=== PATIENT | female | born 1995 | race Caucasian/White ===

== ENCOUNTER 2017-08-14 05:10 | Emergency (ER) | payer MEDICAID, OTHER ==
[2017-08-14 05:21] VITALS: BP 136/90
[2017-08-14] MEDS ORDERED: Acetaminophen 500 MG Tab PO ONE (05:36)
[2017-08-14] MEDS ORDERED: Dicyclomine 10 MG Cap PO ONE (05:37)
--- NOTE | 2017-08-14 05:44 | EDM.PDOC ---
ED HPI GENERAL MEDICAL PROBLEM - General Chief Complaint: Abdominal Pain Stated Complaint: ABDOMINAL PAIN Time Seen by Provider: 08/14/17 05:25 Source of Information: Reports: Patient, Old Records, RN History Limitations: Reports: No Limitations - History of Present Illness INITIAL COMMENTS - FREE TEXT/NARRATIVE: 21 yo female presents with intermittent abdominal pain for the past 3 days. The pain is worse tonight and it was waking her up so she decided to come to the ER. Has not seen her provider for this. Denies fevers. Stools are chronically somewhat loose and are like this now. No vomiting, but had nausea earlier. No missed menses. No dysuria. No self treatment. Onset: Gradual Onset Date: 08/11/17 Duration: Day(s): (3), Waxing/Waning Location: Reports: Abdomen (central), Generalized Quality: Reports: Stabbing Severity: Severe (at its worst, not nearly as bad now) Improves with: Reports: Other (unknown) Worsens with: Reports: Other (unknown) Context: Reports: Other (unknown) Associated Symptoms: Reports: Nausea/Vomiting (no vomiting). Denies: Fever/ Chills Treatments LINE ANALYST: Reports: Other (see below) (none) Abdominal Pain Score (Numeric/FACES): 4 - Related Data Allergies Allergy/AdvReac Type Severity Reaction Status Date / Time albuterol Allergy Shortness Verified 08/14/17 05:16 of Breath Penicillins Allergy Hives Verified 08/14/17 05:16 Sulfa (Sulfonamide Allergy Hives Verified 08/14/17 05:16 Antibiotics) Home Meds: Home Meds Levalbuterol Tartrate [Xopenex HFA] 2 puff IH Q4H PRN 01/20/13 [History] Acetaminop/Dichlphn/Isomethept [Midrin 325-100-65 MG] 1 cap PO Q4H PRN 07/23/15 [History] Montelukast [Singulair] 10 mg PO BEDTIME 07/23/15 [History] Desogestrel-Ethinyl Estradiol [Reclipsen 28 Day Tablet] 1 tab PO DAILY 08/14/17 [History] Dicyclomine [Bentyl] 10 - 20 mg PO QID PRN #30 cap 08/14/17 [Rx] Past Medical History HEENT History: Reports: Allergic Rhinitis, Impaired Vision Cardiovascular History: Reports: None Respiratory History: Reports: Asthma Gastrointestinal History: Reports: Chronic Constipation, Chronic Diarrhea Other Gastrointestinal History: Last BM - 4-14 PM Genitourinary History: Reports: None HEALTH AND NUTRITION SPECIALIST History: Reports: Dysfunctional Uterine Bleeding, Endometriosis Other OB/BYN History: biopsy of vaginal wall, removed polyps, laproscopic burning off endometrosis Musculoskeletal History: Reports: None Neurological History: Reports: Headaches, Chronic Psychiatric History: Reports: ADD, Anxiety, Depression Endocrine/Metabolic History: Reports: None Hematologic History: Reports: Anemia, Iron Deficiency Immunologic History: Reports: None Oncologic (Cancer) History: Reports: None Dermatologic History: Reports: Eczema - Infectious Disease History Infectious Disease History: Reports: None - Past Surgical History Head Surgeries/Procedures: Reports: None GI Surgical History: Reports: Cholecystectomy Social & Family History - Family History HEENT: Reports: Allergic Rhinitis, Cataract, Glaucoma, Hearing Impairment, Impaired Vision, Macular Degeneration, Sinusitis Cardiac: Reports: Angina, Blood Clots/VTE/DVT, Bypass, CAD, High Cholesterol, Hypertension, Pacemaker Respiratory: Reports: COPD GI: Reports: Cholelithiasis, Cirrhosis, Hepatitis, Pancreatitis : Reports: None OBGYN: Reports: Endometriosis, Fibroids, Musculoskeletal: Reports: Arthritis, Back pain, Chronic, Fibromyalgia, Neck Pain , Chronic, Osteoarthritis, RA Neurological: Reports: CVA, Migraines, TIA Psychiatric: Reports: None Endocrine/Metabolic: Reports: Diabetes, Type I, Diabetes, type II Hematologic: Reports: None Immunologic: Reports: None Dermatologic: Reports: None Oncologic: Reports: Liver, Other (See Below) Other Oncologic Family History: MELANOMA OF THE EYE - Tobacco Use Smoking Status *Q: Never Smoker Second Hand Smoke Exposure: No - Caffeine Use Caffeine Use: Reports: None - Alcohol Use Days Per Week of Alcohol Use: 0 - Recreational Drug Use Recreational Drug Use: No ED ROS GENERAL - Review of Systems Review Of Systems: See Below Constitutional: Reports: No Symptoms HEENT: Reports: No Symptoms Respiratory: Reports: No Symptoms Cardiovascular: Reports: No Symptoms Endocrine: Reports: No Symptoms GI/Abdominal: Reports: Abdominal Pain, Nausea. Denies: Anorexia, Black Stool, Bloody Stool, Constipation, Diarrhea, Decreased Appetite, Distension, Flatus, Hematemesis, Hematochezia, Melena, Stool Incontinence, Vomiting : Reports: No Symptoms Musculoskeletal: Reports: No Symptoms Skin: Reports: No Symptoms Neurological: Reports: No Symptoms Psychiatric: Reports: No Symptoms Hematologic/Lymphatic: Reports: No Symptoms Immunologic: Reports: No Symptoms ED EXAM, GI/ABD - Physical Exam Exam: See Below Exam Limited By: No Limitations General Appearance: Alert, WD/WN, No Apparent Distress Eyes: Bilateral: Normal Appearance Ears: Normal External Exam, Normal Canal, Hearing Grossly Normal Nose: Normal Inspection, Normal Mucosa, No Blood Throat/Mouth: Normal Inspection, Normal Lips, Normal Oropharynx, Normal Voice, No Airway Compromise Head: Atraumatic, Normocephalic Neck: Normal Inspection, Supple Respiratory/Chest: No Respiratory Distress, Lungs Clear, Normal Breath Sounds, No Accessory Muscle Use Cardiovascular: Regular Rate, Rhythm, No Edema GI/Abdominal Exam: Normal Bowel Sounds, Soft, No Distention, Tender (diffusely) , Abnormal Bowel Sounds (slightly increased) Back Exam: Normal Inspection. No: CVA Tenderness (R), CVA Tenderness (L) Extremities: Normal Inspection, Normal Range of Motion, Non-Tender, No Pedal Edema Neurological: Alert, Oriented, CN II-XII Intact, Normal Cognition, No Motor/ Sensory Deficits Psychiatric: Normal Affect, Normal Mood Skin Exam: Warm, Dry, Intact, Normal Color, No Rash Course - Vital Signs Text/Narrative:: Feeling better after acetaminophen and dicyclomine. Last Recorded V/S: Last Vital Signs Temp 36.0 C 08/14/17 05:20 Pulse 79 08/14/17 05:20 Resp 16 08/14/17 05:20 BP 136/90 08/14/17 05:20 Pulse Ox 100 08/14/17 05:20 - Orders/Labs/Meds Orders: Active Orders 24 hr Category Date Time Status Abdomen 1V Flat [CR] Stat Exams 08/14/17 05:38 Taken UA W/MICROSCOPIC [URIN] Stat Lab 08/14/17 06:40 Ordered Labs: Laboratory Tests 08/14/17 Range/Units 05:45 WBC 4.7 (4.5-11.0) K/uL RBC 5.25 (3.30-5.50) M/uL Hgb 13.5 (12.0-15.0) g/dL Hct 40.5 (36.0-48.0) % MCV 77 L (80-98) fL MCH 26 L (27-31) pg MCHC 33 (32-36) % Plt Count 223 (150-400) K/uL Meds: Medications Discontinued Medications Generic Name Dose Route Start Last Admin Trade Name Anjali PRN Reason Stop Dose Admin Acetaminophen 1,000 mg 08/14/17 05:36 08/14/17 06:04 Tylenol Extra Strength PO 08/14/17 05:37 1,000 mg ONETIME ONE Administration Dicyclomine HCl 20 mg 08/14/17 05:37 08/14/17 06:04 Bentyl PO 08/14/17 05:38 20 mg ONETIME ONE Administration - Radiology Interpretation Free Text/Narrative:: single view abdominal [id number] Departure - Departure Time of Disposition: 06:55 Disposition: Home, Self-Care 01 Condition: Good Clinical Impression: Intestinal cramps - Discharge Information Prescriptions: Dicyclomine [Bentyl] 10 - 20 mg PO QID PRN #30 cap PRN Reason: Cramping Referrals: Ledy Mcgregor PA [Primary Care Provider] - Forms: ED Department Discharge Additional Instructions: Drink more fluids, benjamin. clear liquids so your urine is light yellow in color. Eat easy to digest foods for the next day or two: yogurt, soda crackers, jello, applesauce, bananas, rice, rice base non-cream soups, apple juice, and sport drinks. Advance diet slowly as needed. Take acetaminophen as needed for pain relief. Take dicyclomine as needed for cramping. Recheck with your doctor in the clinic next week if not fully recovered. - My Orders Last 24 Hours: My Active Orders 08/14/17 05:38 Abdomen 1V Flat [CR] Stat 08/14/17 06:40 UA W/MICROSCOPIC [URIN] Stat - Assessment/Plan Last 24 Hours: My Active Orders 08/14/17 05:38 Abdomen 1V Flat [CR] Stat 08/14/17 06:40 UA W/MICROSCOPIC [URIN] Stat
--- NOTE | 2017-08-14 11:31 | CR ---
No dilated loops of large or small bowel. Surgical clips right upper quadrant.
== END 2017-08-14 07:06 | disposition home or self-care (01) ==
LOC: JP.ED 05:10
DX: R10.9 Unspecified abdominal pain (principal); E78.00 Pure hypercholesterolemia, unspecified; I10 Essential (primary) hypertension; Z88.0 Allergy status to penicillin; Z88.2 Allergy status to sulfonamides
CPT/HCPCS: 36415; 74018; 81001; 85027; 99284; A9270

== ENCOUNTER 2018-09-06 10:20 | Emergency (ER) | payer OTHER, MEDICAID ==
[2018-09-06 10:29] VITALS: BP 140/78
[2018-09-06] MEDS ORDERED: Azithromycin 250 MG Tab PO ONE (12:50)
[2018-09-06] MEDS ORDERED: cefTRIAXone 500 MG Vial IM ONE (12:50)
[2018-09-06] MEDS ORDERED: metroNIDAZOLE 250 MG Tab PO ONE (12:51)
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
[2018-09-06] MEDS ORDERED: LIDOCAINE 1% IM ONE ×2 (13:20)
[2018-09-06] MEDS ORDERED: CEFTRIAXONE 250 MG IM ONE ×2 (13:20)
== END 2018-09-06 14:18 | disposition home or self-care (01) ==
LOC: JP.ED 10:20
DX: T76.21XA Adult sexual abuse, suspected, initial encounter (principal); F41.9 Anxiety disorder, unspecified; F32.9 Major depressive disorder, single episode, unspecified; J45.909 Unspecified asthma, uncomplicated; Z79.899 Other long term (current) drug therapy; Z88.0 Allergy status to penicillin; Z88.2 Allergy status to sulfonamides; Z88.8 Allergy status to other drugs, medicaments and biological substances
CPT/HCPCS: 80305; 96372; 99284; A9270; J0696; J2001

== ENCOUNTER 2018-11-14 10:04 | Inpatient (IN) | payer MEDICAID ==
[2018-11-14] MEDS ORDERED: Sodium Chloride 0.9% 10 ML Syringe FLUSH PRN ×2 (11:03→14:58)
--- NOTE | 2018-11-14 11:11 | EDM.PDOC ---
ED HPI GENERAL MEDICAL PROBLEM - General Chief Complaint: Drug or Alcohol Abuse Stated Complaint: TOOK TOO MANY MEDS Time Seen by Provider: 11/14/18 10:54 Source of Information: Reports: Patient, RN Notes Reviewed History Limitations: Reports: Altered Mental Status - History of Present Illness INITIAL COMMENTS - FREE TEXT/NARRATIVE: 23-year-old female brought in by family members after intentional drug ingestion. Combination of Ativan and naproxen unknown pills Ativan size is 1 mg (30 tablets in the bottle, naproxen size 500 mg unknown number total of 60 tablets in the bottle. She is arousable somnolent GCS of 14 will communicate is alert and orientated, admits to suicidal ideation with intentional drug ingestion secondary to relationship - Related Data Allergies Allergy/AdvReac Type Severity Reaction Status Date / Time albuterol Allergy Shortness Verified 11/14/18 10:16 of Breath fluticasone [From Flonase] Allergy Cannot Verified 11/14/18 10:16 Remember Penicillins Allergy Hives Verified 11/14/18 10:16 Sulfa (Sulfonamide Allergy Hives Verified 11/14/18 10:16 Antibiotics) Home Meds: Home Meds Levalbuterol Tartrate [Xopenex HFA] 2 puff IH Q4H PRN 01/20/13 [History] Montelukast [Singulair] 10 mg PO BEDTIME PRN 07/23/15 [History] Amphetamine/Dextroamphetamine [Adderall XR] 25 mg PO DAILY 11/14/18 [History] Butalbital/Acetaminophen [Butalbital-Acetaminophn 50-300] 1 tab PO ASDIRECTED PRN 11/14/18 [History] Fluticasone Furoate [Flonase Sensimist] 2 spray IH ASDIRECTED 11/14/18 [History] LORazepam 1 mg PO ASDIRECTED PRN 11/14/18 [History] Levalbuterol Tartrate [Levalbuterol Tartrate Hfa] 1 puff IH ASDIRECTED 11/14/18 [History] Montelukast [Singulair] 10 mg PO DAILY 11/14/18 [History] Norethindrone-Ethinyl Estrad [Nortrel 1-35 21 Tablet] 1 tab PO ASDIRECTED [History] Oseltamivir [Tamiflu] 75 mg PO ASDIRECTED 11/14/18 [History] Past Medical History HEENT History: Reports: Allergic Rhinitis, Impaired Vision Respiratory History: Reports: Asthma Gastrointestinal History: Reports: Chronic Constipation, Chronic Diarrhea, Other (See Below) Other Gastrointestinal History: Last BM - 4-14 PM [facility] History: Reports: Dysfunctional Uterine Bleeding, Endometriosis Other [employer] History: biopsy of vaginal wall, removed polyps, laproscopic burning off endometrosis Neurological History: Reports: Headaches, Chronic, Migraines Psychiatric History: Reports: ADD, Anxiety, Depression Hematologic History: Reports: Anemia, Iron Deficiency Dermatologic History: Reports: Eczema - Past Surgical History Head Surgeries/Procedures: Reports: None HEENT Surgical History: Reports: None Cardiovascular Surgical History: Reports: None Respiratory Surgical History: Reports: None GI Surgical History: Reports: Cholecystectomy Neurological Surgical History: Reports: None Dermatological Surgical History: Reports: None Social & Family History - Family History HEENT: Reports: Allergic Rhinitis, Cataract, Glaucoma, Hearing Impairment, Impaired Vision, Macular Degeneration, Sinusitis Cardiac: Reports: Angina, Blood Clots/VTE/DVT, Bypass, CAD, High Cholesterol, Hypertension, Pacemaker Respiratory: Reports: COPD GI: Reports: Cholelithiasis, Cirrhosis, Hepatitis, Pancreatitis : Reports: None OBGYN: Reports: Endometriosis, Fibroids, Musculoskeletal: Reports: Arthritis, Back pain, Chronic, Fibromyalgia, Neck Pain , Chronic, Osteoarthritis, RA Neurological: Reports: CVA, Migraines, TIA Psychiatric: Reports: None Endocrine/Metabolic: Reports: Diabetes, Type I, Diabetes, type II Hematologic: Reports: None Immunologic: Reports: None Dermatologic: Reports: None Oncologic: Reports: Liver, Other (See Below) Other Oncologic Family History: MELANOMA OF THE EYE - Tobacco Use Smoking Status *Q: Current Some Day Smoker Years of Tobacco use: 0 Packs/Tins Daily: 0 Used Tobacco, but Quit: No - Caffeine Use Caffeine Use: Reports: Coffee, Soda, Tea - Recreational Drug Use Recreational Drug Use: No ED ROS GENERAL - Review of Systems Review Of Systems: See Below Constitutional: Reports: Other (Somnolent) HEENT: Reports: No Symptoms Respiratory: Reports: No Symptoms Cardiovascular: Reports: No Symptoms GI/Abdominal: Reports: No Symptoms : Reports: No Symptoms Musculoskeletal: Reports: No Symptoms Skin: Reports: No Symptoms Neurological: Reports: No Symptoms Psychiatric: Reports: Suicidal Ideation - Physical Exam Exam: See Below Text/Narrative:: General: Female, somnolent, GCS of 14, alert and oriented x3 HEENT: head is atraumatic normocephalic, eyes pupils equal round reactive to light, sclera clear no conjunctivitis appreciated. Ears tympanic membranes clear and koehler landmarks and light reflex are present bilaterally canals are clear. Nose no septal deviation, nares are clear, no blood present. Mouth mucosa is moist and pink no erythema or exudate noted in soft palate, tongue is midline uvula is midline, dentition is intact. Neck: Supple no thyromegaly no tracheal deviation. Nodes: Cervical nodes subclavicular nodes nontender no palpable lymphadenopathy noted. Lungs: clear to auscultation bilaterally with symmetrical respirations, no adventitious noise appreciated. CV: Regular rate and rhythm S1 and S2 appreciated no murmurs rubs or gallops noted. Abdomen: Soft, nontender, no palpable masses or organomegaly appreciated, no distention no guarding bowel sounds are present, . Neuro: GCS 14 Skin: Warm and dry, intact Extremities: No lower extremity edema appreciated, pedal pulse is +2. Course - Vital Signs Last Recorded V/S: Last Vital Signs Temp 98.6 F 11/14/18 10:34 Pulse 74 11/14/18 13:12 Resp 18 11/14/18 13:12 BP 109/62 11/14/18 13:12 Pulse Ox 100 11/14/18 13:12 - Orders/Labs/Meds Orders: Active Orders 24 hr Category Date Time Status Peripheral IV Care [RC] . DIRECTED Care 11/14/18 11:04 Inactive Lactated Ringers [Ringers, Lactated] 1,000 ml Med 11/14/18 14:17 Active IV BOLUS EKG 12 Lead [EK] Routine Ther 11/14/18 11:04 Stop Req Medication Orders Acetaminophen (Tylenol) 650 mg PO Q4H PRN PRN Reason: Pain (Mild 1-3)/fever Lactated Ringer's (Ringers, Lactated) 1,000 mls @ 999 mls/hr IV BOLUS ONE Stop: 11/14/18 15:17 Last Admin: 11/14/18 14:20 Dose: 999 mls/hr Lactated Ringer's (Ringers, Lactated) 1,000 mls @ 125 mls/hr IV ASDIRECTED JASVIR Montelukast Sodium (Singulair) 10 mg PO DAILY JASVIR Non-Formulary Medication (Levalbuterol Tartrate [Xopenex Hfa]) 2 puff IH Q4H PRN PRN Reason: Wheezing Non-Formulary Medication (Norethindrone-Ethinyl Estrad [Nortrel 1-35 21 Tablet] ) 1 tab PO ASDIRECTED JASVIR Ondansetron HCl (Zofran Odt) 4 mg PO Q6H PRN PRN Reason: Nausea able to take PO Polyethylene Glycol (Miralax) 17 gm PO DAILY PRN PRN Reason: Constipation Sodium Chloride (Saline Flush) 10 ml FLUSH ASDIRECTED PRN PRN Reason: Keep Vein Open Labs: Laboratory Tests 11/14/18 11/14/18 11/14/18 Range/Units 12:00 12:06 12:06 WBC (4.5-11.0) K/uL RBC (3.30-5.50) M/uL Hgb (12.0-15.0) g/dL Hct (36.0-48.0) % MCV (80-98) fL MCH (27-31) pg MCHC (32-36) % Plt Count (150-400) K/uL Neut % (Auto) (36-66) % Lymph % (Auto) (24-44) % Campbell % (Auto) (2-6) % Eos % (Auto) (2-4) % Baso % (Auto) (0-1) % Sodium (140-148) mmol/L Potassium (3.6-5.2) mmol/L Chloride (100-108) mmol/L Carbon Dioxide (21-32) mmol/L Anion Gap (5.0-14.0) mmol/L BUN (7-18) mg/dL Creatinine (0.6-1.0) mg/dL Est Cr Clr Drug Dosing mL/min Estimated GFR (MDRD) (>60) Glucose (74-106) mg/dL Lactic Acid (0.4-2.0) mmol/L Calcium (8.5-10.1) mg/dL Magnesium (1.8-2.4) mg/dL Total Bilirubin (0.2-1.0) mg/dL Direct Bilirubin (0.0-0.2) mg/dL AST (15-37) U/L ALT (12-78) U/L Alkaline Phosphatase (46-116) U/L Ammonia (11-32) mmol/L Total Protein (6.4-8.2) g/dL Albumin (3.4-5.0) g/dL Globulin (2.3-3.5) g/dL Albumin/Globulin Ratio (1.2-2.2) Lipase 180 (73-393) U/L Urine Color Yellow Urine Appearance Cloudy Urine pH 5.0 (4.5-8.0) Ur Specific Currie 1.025 (1.008-1.030) Urine Protein 30 H (NEGATIVE) mg/dL Urine Glucose (UA) Normal (NEGATIVE) mg/dL Urine Ketones Negative (NEGATIVE) mg/dL Urine Occult Blood Negative (NEGATIVE) Urine Nitrite Negative (NEGATIVE) Urine Bilirubin Moderate (NEGATIVE) Urine Urobilinogen Normal (NORMAL) mg/dL Ur Leukocyte Esterase Negative (NEGATIVE) Urine RBC 0-5 (0-5) Urine WBC 0-5 (0-5) Ur Epithelial Cells Few Amorphous Sediment Not seen Urine Bacteria Moderate Urine Mucus Moderate Urine HCG, Qual Negative Salicylates (2.0-20.0) mg/dL Urine Opiates Screen (NEGATIVE) Ur Oxycodone Screen (NEGATIVE) Urine Methadone Screen (NEGATIVE) Ur Propoxyphene Screen (NEGATIVE) Acetaminophen (10.0-30.0) ug/mL Ur Barbiturates Screen (NEGATIVE) Ur Tricyclics Screen (NEGATIVE) Ur Phencyclidine Scrn (NEGATIVE) Ur Amphetamine Screen (NEGATIVE) U Methamphetamines Scrn (NEGATIVE) Urine MDMA Screen (NEGATIVE) U Benzodiazepines Scrn (NEGATIVE) U Cocaine Metab Screen (NEGATIVE) U Marijuana (THC) Screen (NEGATIVE) Ethyl Alcohol mg/dL 11/14/18 11/14/18 11/14/18 Range/Units 12:06 12:10 12:10 WBC 9.8 (4.5-11.0) K/uL RBC 5.47 (3.30-5.50) M/uL Hgb 14.4 (12.0-15.0) g/dL Hct 43.2 (36.0-48.0) % MCV 79 L (80-98) fL MCH 26 L (27-31) pg MCHC 33 (32-36) % Plt Count 182 (150-400) K/uL Neut % (Auto) 76 H (36-66) % Lymph % (Auto) 16 L (24-44) % Campbell % (Auto) 7 H (2-6) % Eos % (Auto) 0 L (2-4) % Baso % (Auto) 0 (0-1) % Sodium 142 (140-148) mmol/L Potassium 4.9 (3.6-5.2) mmol/L Chloride 107 (100-108) mmol/L Carbon Dioxide 26 (21-32) mmol/L Anion Gap 9.3 (5.0-14.0) mmol/L BUN 11 (7-18) mg/dL Creatinine 0.9 (0.6-1.0) mg/dL Est Cr Clr Drug Dosing 95.59 mL/min Estimated GFR (MDRD) > 60 (>60) Glucose 82 (74-106) mg/dL Lactic Acid (0.4-2.0) mmol/L Calcium 9.0 (8.5-10.1) mg/dL Magnesium 1.8 (1.8-2.4) mg/dL Total Bilirubin 5.6 H D (0.2-1.0) mg/dL Direct Bilirubin (0.0-0.2) mg/dL AST 55 H (15-37) U/L ALT 51 (12-78) U/L Alkaline Phosphatase 70 (46-116) U/L Ammonia (11-32) mmol/L Total Protein 7.3 (6.4-8.2) g/dL Albumin 4.5 (3.4-5.0) g/dL Globulin 2.8 (2.3-3.5) g/dL Albumin/Globulin Ratio 1.6 (1.2-2.2) Lipase (73-393) U/L Urine Color Urine Appearance Urine pH (4.5-8.0) Ur Specific Currie (1.008-1.030) Urine Protein (NEGATIVE) mg/dL Urine Glucose (UA) (NEGATIVE) mg/dL Urine Ketones (NEGATIVE) mg/dL Urine Occult Blood (NEGATIVE) Urine Nitrite (NEGATIVE) Urine Bilirubin (NEGATIVE) Urine Urobilinogen (NORMAL) mg/dL Ur Leukocyte Esterase (NEGATIVE) Urine RBC (0-5) Urine WBC (0-5) Ur Epithelial Cells Amorphous Sediment Urine Bacteria Urine Mucus Urine HCG, Qual Salicylates (2.0-20.0) mg/dL Urine Opiates Screen Negative (NEGATIVE) Ur Oxycodone Screen Negative (NEGATIVE) Urine Methadone Screen Negative (NEGATIVE) Ur Propoxyphene Screen Negative (NEGATIVE) Acetaminophen (10.0-30.0) ug/mL Ur Barbiturates Screen Presumptive positive H (NEGATIVE) Ur Tricyclics Screen Presumptive positive H (NEGATIVE) Ur Phencyclidine Scrn Negative (NEGATIVE) Ur Amphetamine Screen Negative (NEGATIVE) U Methamphetamines Scrn Negative (NEGATIVE) Urine MDMA Screen Negative (NEGATIVE) U Benzodiazepines Scrn Presumptive positive H (NEGATIVE) U Cocaine Metab Screen Negative (NEGATIVE) U Marijuana (THC) Screen Presumptive positive H (NEGATIVE) Ethyl Alcohol mg/dL 11/14/18 11/14/18 11/14/18 Range/Units 12:10 12:10 12:10 WBC (4.5-11.0) K/uL RBC (3.30-5.50) M/uL Hgb (12.0-15.0) g/dL Hct (36.0-48.0) % MCV (80-98) fL MCH (27-31) pg MCHC (32-36) % Plt Count (150-400) K/uL Neut % (Auto) (36-66) % Lymph % (Auto) (24-44) % Campbell % (Auto) (2-6) % Eos % (Auto) (2-4) % Baso % (Auto) (0-1) % Sodium (140-148) mmol/L Potassium (3.6-5.2) mmol/L Chloride (100-108) mmol/L Carbon Dioxide (21-32) mmol/L Anion Gap (5.0-14.0) mmol/L BUN (7-18) mg/dL Creatinine (0.6-1.0) mg/dL Est Cr Clr Drug Dosing mL/min Estimated GFR (MDRD) (>60) Glucose (74-106) mg/dL Lactic Acid (0.4-2.0) mmol/L Calcium (8.5-10.1) mg/dL Magnesium (1.8-2.4) mg/dL Total Bilirubin (0.2-1.0) mg/dL Direct Bilirubin (0.0-0.2) mg/dL AST (15-37) U/L ALT (12-78) U/L Alkaline Phosphatase (46-116) U/L Ammonia 28 (11-32) mmol/L Total Protein (6.4-8.2) g/dL Albumin (3.4-5.0) g/dL Globulin (2.3-3.5) g/dL Albumin/Globulin Ratio (1.2-2.2) Lipase (73-393) U/L Urine Color Urine Appearance Urine pH (4.5-8.0) Ur Specific Currie (1.008-1.030) Urine Protein (NEGATIVE) mg/dL Urine Glucose (UA) (NEGATIVE) mg/dL Urine Ketones (NEGATIVE) mg/dL Urine Occult Blood (NEGATIVE) Urine Nitrite (NEGATIVE) Urine Bilirubin (NEGATIVE) Urine Urobilinogen (NORMAL) mg/dL Ur Leukocyte Esterase (NEGATIVE) Urine RBC (0-5) Urine WBC (0-5) Ur Epithelial Cells Amorphous Sediment Urine Bacteria Urine Mucus Urine HCG, Qual Salicylates (2.0-20.0) mg/dL Urine Opiates Screen (NEGATIVE) Ur Oxycodone Screen (NEGATIVE) Urine Methadone Screen (NEGATIVE) Ur Propoxyphene Screen (NEGATIVE) Acetaminophen 2.0 L (10.0-30.0) ug/mL Ur Barbiturates Screen (NEGATIVE) Ur Tricyclics Screen (NEGATIVE) Ur Phencyclidine Scrn (NEGATIVE) Ur Amphetamine Screen (NEGATIVE) U Methamphetamines Scrn (NEGATIVE) Urine MDMA Screen (NEGATIVE) U Benzodiazepines Scrn (NEGATIVE) U Cocaine Metab Screen (NEGATIVE) U Marijuana (THC) Screen (NEGATIVE) Ethyl Alcohol < 3 mg/dL 11/14/18 11/14/18 11/14/18 Range/Units 12:10 12:46 12:48 WBC (4.5-11.0) K/uL RBC (3.30-5.50) M/uL Hgb (12.0-15.0) g/dL Hct (36.0-48.0) % MCV (80-98) fL MCH (27-31) pg MCHC (32-36) % Plt Count (150-400) K/uL Neut % (Auto) (36-66) % Lymph % (Auto) (24-44) % Campbell % (Auto) (2-6) % Eos % (Auto) (2-4) % Baso % (Auto) (0-1) % Sodium (140-148) mmol/L Potassium (3.6-5.2) mmol/L Chloride (100-108) mmol/L Carbon Dioxide (21-32) mmol/L Anion Gap (5.0-14.0) mmol/L BUN (7-18) mg/dL Creatinine (0.6-1.0) mg/dL Est Cr Clr Drug Dosing mL/min Estimated GFR (MDRD) (>60) Glucose (74-106) mg/dL Lactic Acid 1.5 (0.4-2.0) mmol/L Calcium (8.5-10.1) mg/dL Magnesium (1.8-2.4) mg/dL Total Bilirubin (0.2-1.0) mg/dL Direct Bilirubin 0.06 (0.0-0.2) mg/dL AST (15-37) U/L ALT (12-78) U/L Alkaline Phosphatase (46-116) U/L Ammonia (11-32) mmol/L Total Protein (6.4-8.2) g/dL Albumin (3.4-5.0) g/dL Globulin (2.3-3.5) g/dL Albumin/Globulin Ratio (1.2-2.2) Lipase (73-393) U/L Urine Color Urine Appearance Urine pH (4.5-8.0) Ur Specific Currie (1.008-1.030) Urine Protein (NEGATIVE) mg/dL Urine Glucose (UA) (NEGATIVE) mg/dL Urine Ketones (NEGATIVE) mg/dL Urine Occult Blood (NEGATIVE) Urine Nitrite (NEGATIVE) Urine Bilirubin (NEGATIVE) Urine Urobilinogen (NORMAL) mg/dL Ur Leukocyte Esterase (NEGATIVE) Urine RBC (0-5) Urine WBC (0-5) Ur Epithelial Cells Amorphous Sediment Urine Bacteria Urine Mucus Urine HCG, Qual Salicylates 2.6 (2.0-20.0) mg/dL Urine Opiates Screen (NEGATIVE) Ur Oxycodone Screen (NEGATIVE) Urine Methadone Screen (NEGATIVE) Ur Propoxyphene Screen (NEGATIVE) Acetaminophen (10.0-30.0) ug/mL Ur Barbiturates Screen (NEGATIVE) Ur Tricyclics Screen (NEGATIVE) Ur Phencyclidine Scrn (NEGATIVE) Ur Amphetamine Screen (NEGATIVE) U Methamphetamines Scrn (NEGATIVE) Urine MDMA Screen (NEGATIVE) U Benzodiazepines Scrn (NEGATIVE) U Cocaine Metab Screen (NEGATIVE) U Marijuana (THC) Screen (NEGATIVE) Ethyl Alcohol mg/dL Meds: Medications Generic Name Dose Route Start Last Admin Trade Name Luis Miguelq PRN Reason Stop Dose Admin Acetaminophen 650 mg 11/14/18 14:58 Tylenol PO Q4H PRN Pain (Mild 1-3)/fever Lactated Ringer's 1,000 mls @ 999 mls/hr 11/14/18 14:17 11/14/18 14:20 Ringers, Lactated IV 11/14/18 15:17 999 mls/hr BOLUS ONE Administration Lactated Ringer's 1,000 mls @ 125 mls/hr 11/14/18 14:58 Ringers, Lactated IV ASDIRECTED JASVIR Montelukast Sodium 10 mg 11/15/18 09:00 Singulair PO DAILY JASVIR Non-Formulary Medication 2 puff 11/14/18 14:58 Levalbuterol Tartrate [Xopenex Hfa] IH Q4H PRN Wheezing Non-Formulary Medication 1 tab 11/14/18 14:58 Norethindrone-Ethinyl Estrad [Nortrel 1-35 21 Tablet] PO ASDIRECTED JASVIR Ondansetron HCl 4 mg 11/14/18 14:58 Zofran Odt PO Q6H PRN Nausea able to take PO Polyethylene Glycol 17 gm 11/14/18 14:58 Miralax PO DAILY PRN Constipation Sodium Chloride 10 ml 11/14/18 14:58 Saline Flush FLUSH ASDIRECTED PRN Keep Vein Open Discontinued Medications Generic Name Dose Route Start Last Admin Trade Name Luis Miguelq PRN Reason Stop Dose Admin Lactated Ringer's 1,000 mls @ 125 mls/hr 11/14/18 11:15 11/14/18 12:15 Ringers, Lactated IV 125 mls/hr ASDIRECTED JASVIR Administration Sodium Chloride 10 ml 11/14/18 11:03 11/14/18 12:16 Saline Flush FLUSH 10 ml ASDIRECTED PRN Administration Keep Vein Open Departure - Departure Time of Disposition: 15:11 Disposition: Refer to Observation Condition: Fair Clinical Impression: Suicide attempt by drug overdose - Discharge Information - My Orders Last 24 Hours: My Active Orders 11/14/18 11:04 Peripheral IV Care [RC] . DIRECTED EKG 12 Lead [EK] Routine 11/14/18 14:17 Lactated Ringers [Ringers, Lactated] 1,000 ml IV BOLUS - Assessment/Plan Last 24 Hours: My Active Orders 11/14/18 11:04 Peripheral IV Care [RC] . DIRECTED EKG 12 Lead [EK] Routine 11/14/18 14:17 Lactated Ringers [Ringers, Lactated] 1,000 ml IV BOLUS Plan: Assessment Acuity = acute Site and laterality = suicidal attempt with intentional drug overdose of naproxen and benzodiazepines Etiology = unknown etiology Manifestations = [place]wn[place] GCS 14, hyperbilirubinemia Location of injury = Home Lab values = CBC, CMP unremarkable except for bilirubin elevated 5.6 hyperbilirubinemia lactic acid normal limits lipase normal limits EKG demonstrates normal sinus rhythm qt changes ultrasound right upper quadrant revealed no acute process, urinalysis unremarkable urine drug screen positive for benzodiazepines, tricyclics, barbiturates and cannabis alcohol was negative acetaminophen are all negative salicylic acid negative Plan Called discussed case with hospitalist on-call at 1430 kindly agreed to come to the emergency department and evaluate patient for admission This note was dictated using [employer] voice recognition software please call with any questions on syntax or grammar.
[2018-11-14] MEDS ORDERED: Lactated Ringers 1,000 ML IV SCH (11:15)
[2018-11-14] MEDS ORDERED: Lactated Ringers 1,000 ML IV ONE (14:17)
--- NOTE | 2018-11-14 14:37 | PCM.HP ---
H&P History of Present Illness - General Date of Service: 11/14/18 Admit Problem/Dx: Admission Diagnosis/Problem Admission Diagnosis/Problem Drug overdose Source of Information: Patient, Family, Provider, RN Notes Reviewed History Limitations: Reports: Altered Mental Status (Decreased level of consciousness secondary to drug overdose) - History of Present Illness Initial Comments - Free Text/Narative: Ms. Dickinson is a 23-year-old woman who was admitted through the emergency department with decreased level of consciousness secondary to an intentional drug overdose as a suicide attempt. She had been drinking alcohol yesterday and has been troubled by relationship difficulties. She took an overdose of lorazepam last night,unknown quantity. This morning took several naproxen 500 mg , amount again unknown. She has been awake enough to protect her airway and during the day has become slightly more alert and interactive. She admits to an intentional overdose. Laboratory studies in the emergency department elevated bilirubin level of 5.6, direct bilirubin very low. Ultrasound of the liver was obtained showing no evidence of ductal obstruction. Hemoglobin level is within normal range but her MCV is low. - Related Data Allergies/Adverse Reactions: Allergies Allergy/AdvReac Type Severity Reaction Status Date / Time albuterol Allergy Shortness Verified 11/14/18 10:16 of Breath fluticasone [From Flonase] Allergy Cannot Verified 11/14/18 10:16 Remember Penicillins Allergy Hives Verified 11/14/18 10:16 Sulfa (Sulfonamide Allergy Hives Verified 11/14/18 10:16 Antibiotics) Home Medications: Home Meds Levalbuterol Tartrate [Xopenex HFA] 2 puff IH Q4H PRN 01/20/13 [History] Montelukast [Singulair] 10 mg PO BEDTIME PRN 07/23/15 [History] Amphetamine/Dextroamphetamine [Adderall XR] 25 mg PO DAILY 11/14/18 [History] Butalbital/Acetaminophen [Butalbital-Acetaminophn 50-300] 1 tab PO ASDIRECTED PRN 11/14/18 [History] Fluticasone Furoate [Flonase Sensimist] 2 spray IH ASDIRECTED 11/14/18 [History] LORazepam 1 mg PO ASDIRECTED PRN 11/14/18 [History] Levalbuterol Tartrate [Levalbuterol Tartrate Hfa] 1 puff IH ASDIRECTED 11/14/18 [History] Montelukast [Singulair] 10 mg PO DAILY 11/14/18 [History] Norethindrone-Ethinyl Estrad [Nortrel 1-35 21 Tablet] 1 tab PO ASDIRECTED [History] Oseltamivir [Tamiflu] 75 mg PO ASDIRECTED 11/14/18 [History] Past Medical History HEENT History: Reports: Allergic Rhinitis, Impaired Vision Cardiovascular History: Reports: None Respiratory History: Reports: Asthma Gastrointestinal History: Reports: Chronic Constipation, Chronic Diarrhea, Other (See Below) Other Gastrointestinal History: Last 08-15 PM Genitourinary History: Reports: None 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: Dysfunctional Uterine Bleeding, Endometriosis Other OB/BYN History: biopsy of vaginal wall, removed polyps, laproscopic burning off endometrosis Musculoskeletal History: Reports: None Neurological History: Reports: Headaches, Chronic, Migraines Psychiatric History: Reports: ADD, Anxiety, Depression Endocrine/Metabolic History: Reports: None Hematologic History: Reports: Anemia, Iron Deficiency Immunologic History: Reports: None Oncologic (Cancer) History: Reports: None Dermatologic History: Reports: Eczema - Past Surgical History Head Surgeries/Procedures: Reports: None HEENT Surgical History: Reports: None Cardiovascular Surgical History: Reports: None Respiratory Surgical History: Reports: None GI Surgical History: Reports: Cholecystectomy Neurological Surgical History: Reports: None Dermatological Surgical History: Reports: None Social & Family History - Family History HEENT: Reports: Allergic Rhinitis, Cataract, Glaucoma, Hearing Impairment, Impaired Vision, Macular Degeneration, Sinusitis Cardiac: Reports: Angina, Blood Clots/VTE/DVT, Bypass, CAD, High Cholesterol, Hypertension, Pacemaker Respiratory: Reports: COPD GI: Reports: Cholelithiasis, Cirrhosis, Hepatitis, Pancreatitis : Reports: None OBGYN: Reports: Endometriosis, Fibroids, Musculoskeletal: Reports: Arthritis, Back pain, Chronic, Fibromyalgia, Neck Pain , Chronic, Osteoarthritis, RA Neurological: Reports: CVA, Migraines, TIA Psychiatric: Reports: None Endocrine/Metabolic: Reports: Diabetes, Type I, Diabetes, type II Hematologic: Reports: None Immunologic: Reports: None Dermatologic: Reports: None Oncologic: Reports: Liver, Other (See Below) Other Oncologic Family History: MELANOMA OF THE EYE - Tobacco Use Smoking Status *Q: Current Some Day Smoker Years of Tobacco use: 0 Packs/Tins Daily: 0 Used Tobacco, but Quit: No - Caffeine Use Caffeine Use: Reports: Coffee, Soda, Tea - Recreational Drug Use Recreational Drug Use: No H&P Review of Systems - Review of Systems: Review Of Systems: See Below General: Reports: ROS unobtainable (secondary to decreased level of consciousness) Exam - Exam Exam: See Below - Vital Signs Vital Signs: Last Vital Signs Temp 98.6 F 11/14/18 10:34 Pulse 74 11/14/18 13:12 Resp 18 11/14/18 13:12 BP 109/62 11/14/18 13:12 Pulse Ox 100 11/14/18 13:12 Weight: 135 lb - Exam General: Sedated, Lethargic HEENT: Conjunctiva Clear, Hearing Intact, Mucosa Moist & [place], Normal Nasal Septum, Posterior Pharynx Clear, Pupils Equal Neck: Supple, Trachea Midline, +2 Carotid Pulse wo Bruit Lungs: Clear to Auscultation, Normal Respiratory Effort Cardiovascular: Regular Rate, Regular Rhythm, Normal S1, Normal S2. No: Systolic Murmur, Diastolic Murmur GI/Abdominal Exam: Soft, Non-Tender, No Organomegaly, No Distention Back Exam: Normal Inspection, Full Range of Motion Extremities: Non-Tender, No Pedal Edema Skin: Warm, Dry, Intact Neurological: Cranial Nerves Intact, Strength Equal Bilateral, Normal Tone, Sensation Intact. No: Focal Deficit - Patient Data Lab Results Last 24 hrs: Laboratory Results - last 24 hr 11/14/18 11/14/18 11/14/18 Range/Units 12:00 12:06 12:06 WBC (4.5-11.0) K/uL RBC (3.30-5.50) M/uL Hgb (12.0-15.0) g/dL Hct (36.0-48.0) % MCV (80-98) fL MCH (27-31) pg MCHC (32-36) % Plt Count (150-400) K/uL Neut % (Auto) (36-66) % Lymph % (Auto) (24-44) % [place] % (Auto) (2-6) % Eos % (Auto) (2-4) % Baso % (Auto) (0-1) % Sodium (140-148) mmol/L Potassium (3.6-5.2) mmol/L Chloride (100-108) mmol/L Carbon Dioxide (21-32) mmol/L Anion Gap (5.0-14.0) mmol/L BUN (7-18) mg/dL Creatinine (0.6-1.0) mg/dL Est Cr Clr Drug Dosing mL/min Estimated GFR (MDRD) (>60) Glucose (74-106) mg/dL Lactic Acid (0.4-2.0) mmol/L Calcium (8.5-10.1) mg/dL Magnesium (1.8-2.4) mg/dL Total Bilirubin (0.2-1.0) mg/dL Direct Bilirubin (0.0-0.2) mg/dL AST (15-37) U/L ALT (12-78) U/L Alkaline Phosphatase (46-116) U/L Ammonia (11-32) mmol/L Total Protein (6.4-8.2) g/dL Albumin (3.4-5.0) g/dL Globulin (2.3-3.5) g/dL Albumin/Globulin Ratio (1.2-2.2) Lipase 180 (73-393) U/L Urine Color Yellow Urine Appearance Cloudy Urine pH 5.0 (4.5-8.0) Ur Specific [place] 1.025 (1.008-1.030) Urine Protein 30 H (NEGATIVE) mg/dL Urine Glucose (UA) Normal (NEGATIVE) mg/dL Urine Ketones Negative (NEGATIVE) mg/dL Urine Occult Blood Negative (NEGATIVE) Urine Nitrite Negative (NEGATIVE) Urine Bilirubin Moderate (NEGATIVE) Urine Urobilinogen Normal (NORMAL) mg/dL Ur Leukocyte Esterase Negative (NEGATIVE) Urine RBC 0-5 (0-5) Urine WBC 0-5 (0-5) Ur Epithelial Cells Few Amorphous Sediment Not seen Urine Bacteria Moderate Urine Mucus Moderate Urine HCG, Qual Negative Salicylates (2.0-20.0) mg/dL Urine Opiates Screen (NEGATIVE) Ur Oxycodone Screen (NEGATIVE) Urine Methadone Screen (NEGATIVE) Ur Propoxyphene Screen (NEGATIVE) Acetaminophen (10.0-30.0) ug/mL Ur Barbiturates Screen (NEGATIVE) Ur Tricyclics Screen (NEGATIVE) Ur Phencyclidine Scrn (NEGATIVE) Ur Amphetamine Screen (NEGATIVE) U Methamphetamines Scrn (NEGATIVE) Urine MDMA Screen (NEGATIVE) U Benzodiazepines Scrn (NEGATIVE) U Cocaine Metab Screen (NEGATIVE) U Marijuana (THC) Screen (NEGATIVE) Ethyl Alcohol mg/dL 11/14/18 11/14/18 11/14/18 Range/Units 12:06 12:10 12:10 WBC 9.8 (4.5-11.0) K/uL RBC 5.47 (3.30-5.50) M/uL Hgb 14.4 (12.0-15.0) g/dL Hct 43.2 (36.0-48.0) % MCV 79 L (80-98) fL MCH 26 L (27-31) pg MCHC 33 (32-36) % Plt Count 182 (150-400) K/uL Neut % (Auto) 76 H (36-66) % Lymph % (Auto) 16 L (24-44) % [place] % (Auto) 7 H (2-6) % Eos % (Auto) 0 L (2-4) % Baso % (Auto) 0 (0-1) % Sodium 142 (140-148) mmol/L Potassium 4.9 (3.6-5.2) mmol/L Chloride 107 (100-108) mmol/L Carbon Dioxide 26 (21-32) mmol/L Anion Gap 9.3 (5.0-14.0) mmol/L BUN 11 (7-18) mg/dL Creatinine 0.9 (0.6-1.0) mg/dL Est Cr Clr Drug Dosing 95.59 mL/min Estimated GFR (MDRD) > 60 (>60) Glucose 82 (74-106) mg/dL Lactic Acid (0.4-2.0) mmol/L Calcium 9.0 (8.5-10.1) mg/dL Magnesium 1.8 (1.8-2.4) mg/dL Total Bilirubin 5.6 H D (0.2-1.0) mg/dL Direct Bilirubin (0.0-0.2) mg/dL AST 55 H (15-37) U/L ALT 51 (12-78) U/L Alkaline Phosphatase 70 (46-116) U/L Ammonia (11-32) mmol/L Total Protein 7.3 (6.4-8.2) g/dL Albumin 4.5 (3.4-5.0) g/dL Globulin 2.8 (2.3-3.5) g/dL Albumin/Globulin Ratio 1.6 (1.2-2.2) Lipase (73-393) U/L Urine Color Urine Appearance Urine pH (4.5-8.0) Ur Specific [place] (1.008-1.030) Urine Protein (NEGATIVE) mg/dL Urine Glucose (UA) (NEGATIVE) mg/dL Urine Ketones (NEGATIVE) mg/dL Urine Occult Blood (NEGATIVE) Urine Nitrite (NEGATIVE) Urine Bilirubin (NEGATIVE) Urine Urobilinogen (NORMAL) mg/dL Ur Leukocyte Esterase (NEGATIVE) Urine RBC (0-5) Urine WBC (0-5) Ur Epithelial Cells Amorphous Sediment Urine Bacteria Urine Mucus Urine HCG, Qual Salicylates (2.0-20.0) mg/dL Urine Opiates Screen Negative (NEGATIVE) Ur Oxycodone Screen Negative (NEGATIVE) Urine Methadone Screen Negative (NEGATIVE) Ur Propoxyphene Screen Negative (NEGATIVE) Acetaminophen (10.0-30.0) ug/mL Ur Barbiturates Screen Presumptive positive H (NEGATIVE) Ur Tricyclics Screen Presumptive positive H (NEGATIVE) Ur Phencyclidine Scrn Negative (NEGATIVE) Ur Amphetamine Screen Negative (NEGATIVE) U Methamphetamines Scrn Negative (NEGATIVE) Urine MDMA Screen Negative (NEGATIVE) U Benzodiazepines Scrn Presumptive positive H (NEGATIVE) U Cocaine Metab Screen Negative (NEGATIVE) U Marijuana (THC) Screen Presumptive positive H (NEGATIVE) Ethyl Alcohol mg/dL 11/14/18 11/14/18 11/14/18 Range/Units 12:10 12:10 12:10 WBC (4.5-11.0) K/uL RBC (3.30-5.50) M/uL Hgb (12.0-15.0) g/dL Hct (36.0-48.0) % MCV (80-98) fL MCH (27-31) pg MCHC (32-36) % Plt Count (150-400) K/uL Neut % (Auto) (36-66) % Lymph % (Auto) (24-44) % [place] % (Auto) (2-6) % Eos % (Auto) (2-4) % Baso % (Auto) (0-1) % Sodium (140-148) mmol/L Potassium (3.6-5.2) mmol/L Chloride (100-108) mmol/L Carbon Dioxide (21-32) mmol/L Anion Gap (5.0-14.0) mmol/L BUN (7-18) mg/dL Creatinine (0.6-1.0) mg/dL Est Cr Clr Drug Dosing mL/min Estimated GFR (MDRD) (>60) Glucose (74-106) mg/dL Lactic Acid (0.4-2.0) mmol/L Calcium (8.5-10.1) mg/dL Magnesium (1.8-2.4) mg/dL Total Bilirubin (0.2-1.0) mg/dL Direct Bilirubin (0.0-0.2) mg/dL AST (15-37) U/L ALT (12-78) U/L Alkaline Phosphatase (46-116) U/L Ammonia 28 (11-32) mmol/L Total Protein (6.4-8.2) g/dL Albumin (3.4-5.0) g/dL Globulin (2.3-3.5) g/dL Albumin/Globulin Ratio (1.2-2.2) Lipase (73-393) U/L Urine Color Urine Appearance Urine pH (4.5-8.0) Ur Specific [place] (1.008-1.030) Urine Protein (NEGATIVE) mg/dL Urine Glucose (UA) (NEGATIVE) mg/dL Urine Ketones (NEGATIVE) mg/dL Urine Occult Blood (NEGATIVE) Urine Nitrite (NEGATIVE) Urine Bilirubin (NEGATIVE) Urine Urobilinogen (NORMAL) mg/dL Ur Leukocyte Esterase (NEGATIVE) Urine RBC (0-5) Urine WBC (0-5) Ur Epithelial Cells Amorphous Sediment Urine Bacteria Urine Mucus Urine HCG, Qual Salicylates (2.0-20.0) mg/dL Urine Opiates Screen (NEGATIVE) Ur Oxycodone Screen (NEGATIVE) Urine Methadone Screen (NEGATIVE) Ur Propoxyphene Screen (NEGATIVE) Acetaminophen 2.0 L (10.0-30.0) ug/mL Ur Barbiturates Screen (NEGATIVE) Ur Tricyclics Screen (NEGATIVE) Ur Phencyclidine Scrn (NEGATIVE) Ur Amphetamine Screen (NEGATIVE) U Methamphetamines Scrn (NEGATIVE) Urine MDMA Screen (NEGATIVE) U Benzodiazepines Scrn (NEGATIVE) U Cocaine Metab Screen (NEGATIVE) U Marijuana (THC) Screen (NEGATIVE) Ethyl Alcohol < 3 mg/dL 11/14/18 11/14/18 11/14/18 Range/Units 12:10 12:46 12:48 WBC (4.5-11.0) K/uL RBC (3.30-5.50) M/uL Hgb (12.0-15.0) g/dL Hct (36.0-48.0) % MCV (80-98) fL MCH (27-31) pg MCHC (32-36) % Plt Count (150-400) K/uL Neut % (Auto) (36-66) % Lymph % (Auto) (24-44) % [place] % (Auto) (2-6) % Eos % (Auto) (2-4) % Baso % (Auto) (0-1) % Sodium (140-148) mmol/L Potassium (3.6-5.2) mmol/L Chloride (100-108) mmol/L Carbon Dioxide (21-32) mmol/L Anion Gap (5.0-14.0) mmol/L BUN (7-18) mg/dL Creatinine (0.6-1.0) mg/dL Est Cr Clr Drug Dosing mL/min Estimated GFR (MDRD) (>60) Glucose (74-106) mg/dL Lactic Acid 1.5 (0.4-2.0) mmol/L Calcium (8.5-10.1) mg/dL Magnesium (1.8-2.4) mg/dL Total Bilirubin (0.2-1.0) mg/dL Direct Bilirubin 0.06 (0.0-0.2) mg/dL AST (15-37) U/L ALT (12-78) U/L Alkaline Phosphatase (46-116) U/L Ammonia (11-32) mmol/L Total Protein (6.4-8.2) g/dL Albumin (3.4-5.0) g/dL Globulin (2.3-3.5) g/dL Albumin/Globulin Ratio (1.2-2.2) Lipase (73-393) U/L Urine Color Urine Appearance Urine pH (4.5-8.0) Ur Specific [place] (1.008-1.030) Urine Protein (NEGATIVE) mg/dL Urine Glucose (UA) (NEGATIVE) mg/dL Urine Ketones (NEGATIVE) mg/dL Urine Occult Blood (NEGATIVE) Urine Nitrite (NEGATIVE) Urine Bilirubin (NEGATIVE) Urine Urobilinogen (NORMAL) mg/dL Ur Leukocyte Esterase (NEGATIVE) Urine RBC (0-5) Urine WBC (0-5) Ur Epithelial Cells Amorphous Sediment Urine Bacteria Urine Mucus Urine HCG, Qual Salicylates 2.6 (2.0-20.0) mg/dL Urine Opiates Screen (NEGATIVE) Ur Oxycodone Screen (NEGATIVE) Urine Methadone Screen (NEGATIVE) Ur Propoxyphene Screen (NEGATIVE) Acetaminophen (10.0-30.0) ug/mL Ur Barbiturates Screen (NEGATIVE) Ur Tricyclics Screen (NEGATIVE) Ur Phencyclidine Scrn (NEGATIVE) Ur Amphetamine Screen (NEGATIVE) U Methamphetamines Scrn (NEGATIVE) Urine MDMA Screen (NEGATIVE) U Benzodiazepines Scrn (NEGATIVE) U Cocaine Metab Screen (NEGATIVE) U Marijuana (THC) Screen (NEGATIVE) Ethyl Alcohol mg/dL Result Diagrams: 11/14/18 12:10 11/14/18 12:10 *Q Meaningful Use (ADM) - VTE *Q VTE Pharmacological Contraindications *Q: Not Candidate LT Anticoag - VTE Risk Assess *Q Each Risk Factor Represents 1 Point: None Total Score 1 Point Risk Factors: 0 Each Risk Factor Represents 2 Points: None Total Score 2 Point Risk Factors: 0 Each Risk Factor Represents 3 Points: None Total Score 3 Point Risk Factors: 0 Each Risk Factor Represents 5 Points: None Total Score 5 Point Risk Factors: 0 Venous Thromboembolism Risk Factor Score *Q: 0 Problem List Initiated/Reviewed/Updated: Yes Orders Last 24hrs: Active Orders 24 hr Category Date Time Status Patient Status Manage Transfer [TRANSFER] Routine ADT 11/14/18 14:31 Ordered EKG Documentation Completion [RC] ASDIRECTED Care 11/14/18 11:05 Active Peripheral IV Care [RC] . DIRECTED Care 11/14/18 11:04 Active Suicide Precautions [RC] ASDIRECTED Care 11/14/18 11:03 Active Abdomen Ltd [US] Stat Exams 11/14/18 12:48 Taken Lactated Ringers [Ringers, Lactated] 1,000 ml Med 11/14/18 11:15 Active IV ASDIRECTED Lactated Ringers [Ringers, Lactated] 1,000 ml Med 11/14/18 14:17 Active IV BOLUS Sodium Chloride 0.9% [Saline Flush] Med 11/14/18 11:03 Active 10 ml FLUSH ASDIRECTED PRN Peripheral IV Insertion Adult [OM.PC] Urgent Oth 11/14/18 11:03 Ordered Resuscitation Status Routine Resus Stat 11/14/18 14:33 Ordered EKG 12 Lead [EK] Routine Ther 11/14/18 11:04 Ordered Medication Orders Lactated Ringer's (Ringers, Lactated) 1,000 mls @ 125 mls/hr IV ASDIRECTED JASVIR Last Admin: 11/14/18 12:15 Dose: 125 mls/hr Lactated Ringer's (Ringers, Lactated) 1,000 mls @ 999 mls/hr IV BOLUS ONE Stop: 11/14/18 15:17 Last Admin: 11/14/18 14:20 Dose: 999 mls/hr Sodium Chloride (Saline Flush) 10 ml FLUSH ASDIRECTED PRN PRN Reason: Keep Vein Open Last Admin: 11/14/18 12:16 Dose: 10 ml Assessment/Plan Comment:: ASSESSMENT AND PLAN INTENTIONAL DRUG OVERDOSE/SUICIDE ATTEMPT-overdose of unknown quantities of lorazepam 1 mg and Naproxin 500 mg, associated with alcohol use. Urine drug screen positive for barbiturates, benzodiazepines, tricyclics, and marijuana. -IV fluids for hydration -Reassess renal function in a.m. -Continuous pulse oximetry and cardiac monitoring -Crisis team evaluation in a.m. ELEVATED BILIRUBIN-bilirubin of 5.6 identified on admission, very low direct bilirubin. Mild elevation in AST likely secondary to alcohol use. Ultrasound shows no evidence of ductal obstruction. Etiology not apparent. -Reassess bilirubin in a.m., pursue evaluation if remain significantly elevated MICROCYTIC RED BLOOD CELL INDICES -Iron and iron binding in a.m. MAINTENANCE ISSUES -DVT prophylaxis;not indicated -GI prophylaxis;not indicated -Glynn catheter;not indicated -Nutrition;regular diet -Nicotine dependence;not required CODE STATUS-FULL CODE ADMISSION STATUS-patient will be admitted to inpatient status, expect at least a 2 night hospital stay for evaluation and management of problems as outlined above. At the time of this admission I do not reasonably expected evaluation and management of this problem will require more than a 96 hour hospital stay. DISPOSITION-anticipate discharge to home after the hospital stay. PRIMARY CARE PROVIDER-Angelina Mcgregor
--- NOTE | 2018-11-14 14:48 | CRLUS ---
Elevated bili. Technique right upper quadrant ultrasound FINDINGS: Visualized pancreas is unremarkable. Proximal abdominal aorta is nonaneurysmal. Liver is unremarkable. Cholecystectomy. Common bile duct is upper limits of normal measuring 6 mm. Right kidney measures 10 cm. Right kidney is unremarkable. Impression: Unremarkable abdominal ultrasound. Dictated by Aracelis Henry MD @ Nov 14 2018 2:46PM Signed by Dr. Aracelis Henry @ Nov 14 2018 2:48PM
[2018-11-14] MEDS ORDERED: Ondansetron 4 MG Tab.DIS PO PRN (14:58)
[2018-11-14] MEDS ORDERED: Polyethylene Glycol 3350 Powder 17 GM Packet PO PRN (14:58)
[2018-11-14] MEDS ORDERED: Acetaminophen 325 MG Tab PO PRN (14:58)
[2018-11-14] MEDS ORDERED: Non-Formulary Medication 1 Each (Levalbuterol Tartrate [Xopenex Hfa] 2 PUFF) IH PRN (14:58)
[2018-11-14] MEDS ORDERED: [UNRECOGNIZED DRUG - OTHER] PO SCH (14:58)
[2018-11-14] MEDS ORDERED: LEVALBUTEROL TARTRATE IH SCH (16:15)
[2018-11-14 20:17] LABS: ACETAMINOPHEN 4.7 ug/mL (10.0-30.0)
[2018-11-14] MEDS: Lactated Ringers 1,000 ML IV SCH (22:37)
[2018-11-15] MEDS: Lactated Ringers 1,000 ML IV SCH (06:42)
[2018-11-15] MEDS ORDERED: Montelukast 10 MG Tab PO SCH (09:00)
--- NOTE | 2018-11-15 09:04 | PCM.PN ---
- General Info Date of Service: 11/15/18 Subjective Update: There were no acute events overnight. Patient has stable vital signs. Bilirubin level is normal today. Iron studies are normal. She reports that physically she feels okay with no shortness of breath or abdominal pain. She feels down. She feels foolish about her ingestions over the weekend. She does tell me that she took the pills in an attempt to go to sleep and never wake up. She voices understanding about the severity of the episodes and necessity of inpatient management. - Patient Data Vitals - Most Recent: Last Vital Signs Temp 35.1 C L 11/15/18 07:00 Pulse 72 11/15/18 08:00 Resp 19 11/15/18 08:00 BP 113/75 11/15/18 08:00 Pulse Ox 98 11/15/18 08:00 Weight - Most Recent: 61.235 kg I&O - Last 24 Hours: Intake & Output 11/14/18 11/15/18 11/15/18 22:59 06:59 14:59 Intake Total 1462 1678 Balance 1462 1678 Lab Results Last 24 Hours: Laboratory Results - last 24 hr 11/14/18 11/14/18 11/14/18 Range/Units 12:00 12:06 12:06 WBC (4.5-11.0) K/uL RBC (3.30-5.50) M/uL Hgb (12.0-15.0) g/dL Hct (36.0-48.0) % MCV (80-98) fL MCH (27-31) pg MCHC (32-36) % Plt Count (150-400) K/uL Neut % (Auto) (36-66) % Lymph % (Auto) (24-44) % Long % (Auto) (2-6) % Eos % (Auto) (2-4) % Baso % (Auto) (0-1) % Sodium (140-148) mmol/L Potassium (3.6-5.2) mmol/L Chloride (100-108) mmol/L Carbon Dioxide (21-32) mmol/L Anion Gap (5.0-14.0) mmol/L BUN (7-18) mg/dL Creatinine (0.6-1.0) mg/dL Est Cr Clr Drug Dosing mL/min Estimated GFR (MDRD) (>60) Glucose (74-106) mg/dL Lactic Acid (0.4-2.0) mmol/L Calcium (8.5-10.1) mg/dL Magnesium (1.8-2.4) mg/dL Iron (50-170) ug/dL TIBC (250-450) ug/dl % Saturation (20-55) % Total Bilirubin (0.2-1.0) mg/dL Direct Bilirubin (0.0-0.2) mg/dL AST (15-37) U/L ALT (12-78) U/L Alkaline Phosphatase (46-116) U/L Ammonia (11-32) mmol/L Total Protein (6.4-8.2) g/dL Albumin (3.4-5.0) g/dL Globulin (2.3-3.5) g/dL Albumin/Globulin Ratio (1.2-2.2) Lipase 180 (73-393) U/L Urine Color Yellow Urine Appearance Cloudy Urine pH 5.0 (4.5-8.0) Ur Specific [place] 1.025 (1.008-1.030) Urine Protein 30 H (NEGATIVE) mg/dL Urine Glucose (UA) Normal (NEGATIVE) mg/dL Urine Ketones Negative (NEGATIVE) mg/dL Urine Occult Blood Negative (NEGATIVE) Urine Nitrite Negative (NEGATIVE) Urine Bilirubin Moderate (NEGATIVE) Urine Urobilinogen Normal (NORMAL) mg/dL Ur Leukocyte Esterase Negative (NEGATIVE) Urine RBC 0-5 (0-5) Urine WBC 0-5 (0-5) Ur Epithelial Cells Few Amorphous Sediment Not seen Urine Bacteria Moderate Urine Mucus Moderate Urine HCG, Qual Negative Salicylates (2.0-20.0) mg/dL Urine Opiates Screen (NEGATIVE) Ur Oxycodone Screen (NEGATIVE) Urine Methadone Screen (NEGATIVE) Ur Propoxyphene Screen (NEGATIVE) Acetaminophen (10.0-30.0) ug/mL Ur Barbiturates Screen (NEGATIVE) Ur Tricyclics Screen (NEGATIVE) Ur Phencyclidine Scrn (NEGATIVE) Ur Amphetamine Screen (NEGATIVE) U Methamphetamines Scrn (NEGATIVE) Urine MDMA Screen (NEGATIVE) U Benzodiazepines Scrn (NEGATIVE) U Cocaine Metab Screen (NEGATIVE) U Marijuana (THC) Screen (NEGATIVE) Ethyl Alcohol mg/dL 11/14/18 11/14/18 11/14/18 Range/Units 12:06 12:10 12:10 WBC 9.8 (4.5-11.0) K/uL RBC 5.47 (3.30-5.50) M/uL Hgb 14.4 (12.0-15.0) g/dL Hct 43.2 (36.0-48.0) % MCV 79 L (80-98) fL MCH 26 L (27-31) pg MCHC 33 (32-36) % Plt Count 182 (150-400) K/uL Neut % (Auto) 76 H (36-66) % Lymph % (Auto) 16 L (24-44) % Long % (Auto) 7 H (2-6) % Eos % (Auto) 0 L (2-4) % Baso % (Auto) 0 (0-1) % Sodium 142 (140-148) mmol/L Potassium 4.9 (3.6-5.2) mmol/L Chloride 107 (100-108) mmol/L Carbon Dioxide 26 (21-32) mmol/L Anion Gap 9.3 (5.0-14.0) mmol/L BUN 11 (7-18) mg/dL Creatinine 0.9 (0.6-1.0) mg/dL Est Cr Clr Drug Dosing 95.59 mL/min Estimated GFR (MDRD) > 60 (>60) Glucose 82 (74-106) mg/dL Lactic Acid (0.4-2.0) mmol/L Calcium 9.0 (8.5-10.1) mg/dL Magnesium 1.8 (1.8-2.4) mg/dL Iron (50-170) ug/dL TIBC (250-450) ug/dl % Saturation (20-55) % Total Bilirubin 5.6 H D (0.2-1.0) mg/dL Direct Bilirubin (0.0-0.2) mg/dL AST 55 H (15-37) U/L ALT 51 (12-78) U/L Alkaline Phosphatase 70 (46-116) U/L Ammonia (11-32) mmol/L Total Protein 7.3 (6.4-8.2) g/dL Albumin 4.5 (3.4-5.0) g/dL Globulin 2.8 (2.3-3.5) g/dL Albumin/Globulin Ratio 1.6 (1.2-2.2) Lipase (73-393) U/L Urine Color Urine Appearance Urine pH (4.5-8.0) Ur Specific [place] (1.008-1.030) Urine Protein (NEGATIVE) mg/dL Urine Glucose (UA) (NEGATIVE) mg/dL Urine Ketones (NEGATIVE) mg/dL Urine Occult Blood (NEGATIVE) Urine Nitrite (NEGATIVE) Urine Bilirubin (NEGATIVE) Urine Urobilinogen (NORMAL) mg/dL Ur Leukocyte Esterase (NEGATIVE) Urine RBC (0-5) Urine WBC (0-5) Ur Epithelial Cells Amorphous Sediment Urine Bacteria Urine Mucus Urine HCG, Qual Salicylates (2.0-20.0) mg/dL Urine Opiates Screen Negative (NEGATIVE) Ur Oxycodone Screen Negative (NEGATIVE) Urine Methadone Screen Negative (NEGATIVE) Ur Propoxyphene Screen Negative (NEGATIVE) Acetaminophen (10.0-30.0) ug/mL Ur Barbiturates Screen Presumptive positive H (NEGATIVE) Ur Tricyclics Screen Presumptive positive H (NEGATIVE) Ur Phencyclidine Scrn Negative (NEGATIVE) Ur Amphetamine Screen Negative (NEGATIVE) U Methamphetamines Scrn Negative (NEGATIVE) Urine MDMA Screen Negative (NEGATIVE) U Benzodiazepines Scrn Presumptive positive H (NEGATIVE) U Cocaine Metab Screen Negative (NEGATIVE) U Marijuana (THC) Screen Presumptive positive H (NEGATIVE) Ethyl Alcohol mg/dL 11/14/18 11/14/18 11/14/18 Range/Units 12:10 12:10 12:10 WBC (4.5-11.0) K/uL RBC (3.30-5.50) M/uL Hgb (12.0-15.0) g/dL Hct (36.0-48.0) % MCV (80-98) fL MCH (27-31) pg MCHC (32-36) % Plt Count (150-400) K/uL Neut % (Auto) (36-66) % Lymph % (Auto) (24-44) % Long % (Auto) (2-6) % Eos % (Auto) (2-4) % Baso % (Auto) (0-1) % Sodium (140-148) mmol/L Potassium (3.6-5.2) mmol/L Chloride (100-108) mmol/L Carbon Dioxide (21-32) mmol/L Anion Gap (5.0-14.0) mmol/L BUN (7-18) mg/dL Creatinine (0.6-1.0) mg/dL Est Cr Clr Drug Dosing mL/min Estimated GFR (MDRD) (>60) Glucose (74-106) mg/dL Lactic Acid (0.4-2.0) mmol/L Calcium (8.5-10.1) mg/dL Magnesium (1.8-2.4) mg/dL Iron (50-170) ug/dL TIBC (250-450) ug/dl % Saturation (20-55) % Total Bilirubin (0.2-1.0) mg/dL Direct Bilirubin (0.0-0.2) mg/dL AST (15-37) U/L ALT (12-78) U/L Alkaline Phosphatase (46-116) U/L Ammonia 28 (11-32) mmol/L Total Protein (6.4-8.2) g/dL Albumin (3.4-5.0) g/dL Globulin (2.3-3.5) g/dL Albumin/Globulin Ratio (1.2-2.2) Lipase (73-393) U/L Urine Color Urine Appearance Urine pH (4.5-8.0) Ur Specific [place] (1.008-1.030) Urine Protein (NEGATIVE) mg/dL Urine Glucose (UA) (NEGATIVE) mg/dL Urine Ketones (NEGATIVE) mg/dL Urine Occult Blood (NEGATIVE) Urine Nitrite (NEGATIVE) Urine Bilirubin (NEGATIVE) Urine Urobilinogen (NORMAL) mg/dL Ur Leukocyte Esterase (NEGATIVE) Urine RBC (0-5) Urine WBC (0-5) Ur Epithelial Cells Amorphous Sediment Urine Bacteria Urine Mucus Urine HCG, Qual Salicylates (2.0-20.0) mg/dL Urine Opiates Screen (NEGATIVE) Ur Oxycodone Screen (NEGATIVE) Urine Methadone Screen (NEGATIVE) Ur Propoxyphene Screen (NEGATIVE) Acetaminophen 2.0 L (10.0-30.0) ug/mL Ur Barbiturates Screen (NEGATIVE) Ur Tricyclics Screen (NEGATIVE) Ur Phencyclidine Scrn (NEGATIVE) Ur Amphetamine Screen (NEGATIVE) U Methamphetamines Scrn (NEGATIVE) Urine MDMA Screen (NEGATIVE) U Benzodiazepines Scrn (NEGATIVE) U Cocaine Metab Screen (NEGATIVE) U Marijuana (THC) Screen (NEGATIVE) Ethyl Alcohol < 3 mg/dL 11/14/18 11/14/18 11/14/18 Range/Units 12:10 12:46 12:48 WBC (4.5-11.0) K/uL RBC (3.30-5.50) M/uL Hgb (12.0-15.0) g/dL Hct (36.0-48.0) % MCV (80-98) fL MCH (27-31) pg MCHC (32-36) % Plt Count (150-400) K/uL Neut % (Auto) (36-66) % Lymph % (Auto) (24-44) % Long % (Auto) (2-6) % Eos % (Auto) (2-4) % Baso % (Auto) (0-1) % Sodium (140-148) mmol/L Potassium (3.6-5.2) mmol/L Chloride (100-108) mmol/L Carbon Dioxide (21-32) mmol/L Anion Gap (5.0-14.0) mmol/L BUN (7-18) mg/dL Creatinine (0.6-1.0) mg/dL Est Cr Clr Drug Dosing mL/min Estimated GFR (MDRD) (>60) Glucose (74-106) mg/dL Lactic Acid 1.5 (0.4-2.0) mmol/L Calcium (8.5-10.1) mg/dL Magnesium (1.8-2.4) mg/dL Iron (50-170) ug/dL TIBC (250-450) ug/dl % Saturation (20-55) % Total Bilirubin (0.2-1.0) mg/dL Direct Bilirubin 0.06 (0.0-0.2) mg/dL AST (15-37) U/L ALT (12-78) U/L Alkaline Phosphatase (46-116) U/L Ammonia (11-32) mmol/L Total Protein (6.4-8.2) g/dL Albumin (3.4-5.0) g/dL Globulin (2.3-3.5) g/dL Albumin/Globulin Ratio (1.2-2.2) Lipase (73-393) U/L Urine Color Urine Appearance Urine pH (4.5-8.0) Ur Specific [place] (1.008-1.030) Urine Protein (NEGATIVE) mg/dL Urine Glucose (UA) (NEGATIVE) mg/dL Urine Ketones (NEGATIVE) mg/dL Urine Occult Blood (NEGATIVE) Urine Nitrite (NEGATIVE) Urine Bilirubin (NEGATIVE) Urine Urobilinogen (NORMAL) mg/dL Ur Leukocyte Esterase (NEGATIVE) Urine RBC (0-5) Urine WBC (0-5) Ur Epithelial Cells Amorphous Sediment Urine Bacteria Urine Mucus Urine HCG, Qual Salicylates 2.6 (2.0-20.0) mg/dL Urine Opiates Screen (NEGATIVE) Ur Oxycodone Screen (NEGATIVE) Urine Methadone Screen (NEGATIVE) Ur Propoxyphene Screen (NEGATIVE) Acetaminophen (10.0-30.0) ug/mL Ur Barbiturates Screen (NEGATIVE) Ur Tricyclics Screen (NEGATIVE) Ur Phencyclidine Scrn (NEGATIVE) Ur Amphetamine Screen (NEGATIVE) U Methamphetamines Scrn (NEGATIVE) Urine MDMA Screen (NEGATIVE) U Benzodiazepines Scrn (NEGATIVE) U Cocaine Metab Screen (NEGATIVE) U Marijuana (THC) Screen (NEGATIVE) Ethyl Alcohol mg/dL 11/14/18 11/14/18 11/15/18 Range/Units 15:43 20:00 06:05 WBC (4.5-11.0) K/uL RBC (3.30-5.50) M/uL Hgb (12.0-15.0) g/dL Hct (36.0-48.0) % MCV (80-98) fL MCH (27-31) pg MCHC (32-36) % Plt Count (150-400) K/uL Neut % (Auto) (36-66) % Lymph % (Auto) (24-44) % Long % (Auto) (2-6) % Eos % (Auto) (2-4) % Baso % (Auto) (0-1) % Sodium 141 145 (140-148) mmol/L Potassium 3.4 L 4.0 (3.6-5.2) mmol/L Chloride 108 110 H (100-108) mmol/L Carbon Dioxide 25 24 (21-32) mmol/L Anion Gap 11.4 15.0 H (5.0-14.0) mmol/L BUN 11 7 (7-18) mg/dL Creatinine 1.1 H 0.9 (0.6-1.0) mg/dL Est Cr Clr Drug Dosing 78.21 95.59 mL/min Estimated GFR (MDRD) > 60 > 60 (>60) Glucose 133 H 80 (74-106) mg/dL Lactic Acid (0.4-2.0) mmol/L Calcium 8.5 8.2 L (8.5-10.1) mg/dL Magnesium (1.8-2.4) mg/dL Iron (50-170) ug/dL TIBC (250-450) ug/dl % Saturation (20-55) % Total Bilirubin 0.4 D (0.2-1.0) mg/dL Direct Bilirubin (0.0-0.2) mg/dL AST 24 (15-37) U/L ALT 36 (12-78) U/L Alkaline Phosphatase 54 (46-116) U/L Ammonia (11-32) mmol/L Total Protein 5.0 L (6.4-8.2) g/dL Albumin 2.8 L (3.4-5.0) g/dL Globulin 2.2 L (2.3-3.5) g/dL Albumin/Globulin Ratio 1.3 (1.2-2.2) Lipase (73-393) U/L Urine Color Urine Appearance Urine pH (4.5-8.0) Ur Specific [place] (1.008-1.030) Urine Protein (NEGATIVE) mg/dL Urine Glucose (UA) (NEGATIVE) mg/dL Urine Ketones (NEGATIVE) mg/dL Urine Occult Blood (NEGATIVE) Urine Nitrite (NEGATIVE) Urine Bilirubin (NEGATIVE) Urine Urobilinogen (NORMAL) mg/dL Ur Leukocyte Esterase (NEGATIVE) Urine RBC (0-5) Urine WBC (0-5) Ur Epithelial Cells Amorphous Sediment Urine Bacteria Urine Mucus Urine HCG, Qual Salicylates (2.0-20.0) mg/dL Urine Opiates Screen (NEGATIVE) Ur Oxycodone Screen (NEGATIVE) Urine Methadone Screen (NEGATIVE) Ur Propoxyphene Screen (NEGATIVE) Acetaminophen 3.5 L 4.7 L (10.0-30.0) ug/mL Ur Barbiturates Screen (NEGATIVE) Ur Tricyclics Screen (NEGATIVE) Ur Phencyclidine Scrn (NEGATIVE) Ur Amphetamine Screen (NEGATIVE) U Methamphetamines Scrn (NEGATIVE) Urine MDMA Screen (NEGATIVE) U Benzodiazepines Scrn (NEGATIVE) U Cocaine Metab Screen (NEGATIVE) U Marijuana (THC) Screen (NEGATIVE) Ethyl Alcohol mg/dL 11/15/18 Range/Units 06:05 WBC (4.5-11.0) K/uL RBC (3.30-5.50) M/uL Hgb (12.0-15.0) g/dL Hct (36.0-48.0) % MCV (80-98) fL MCH (27-31) pg MCHC (32-36) % Plt Count (150-400) K/uL Neut % (Auto) (36-66) % Lymph % (Auto) (24-44) % Long % (Auto) (2-6) % Eos % (Auto) (2-4) % Baso % (Auto) (0-1) % Sodium (140-148) mmol/L Potassium (3.6-5.2) mmol/L Chloride (100-108) mmol/L Carbon Dioxide (21-32) mmol/L Anion Gap (5.0-14.0) mmol/L BUN (7-18) mg/dL Creatinine (0.6-1.0) mg/dL Est Cr Clr Drug Dosing mL/min Estimated GFR (MDRD) (>60) Glucose (74-106) mg/dL Lactic Acid (0.4-2.0) mmol/L Calcium (8.5-10.1) mg/dL Magnesium (1.8-2.4) mg/dL Iron 126 (50-170) ug/dL TIBC 267 (250-450) ug/dl % Saturation 47 (20-55) % Total Bilirubin (0.2-1.0) mg/dL Direct Bilirubin (0.0-0.2) mg/dL AST (15-37) U/L ALT (12-78) U/L Alkaline Phosphatase (46-116) U/L Ammonia (11-32) mmol/L Total Protein (6.4-8.2) g/dL Albumin (3.4-5.0) g/dL Globulin (2.3-3.5) g/dL Albumin/Globulin Ratio (1.2-2.2) Lipase (73-393) U/L Urine Color Urine Appearance Urine pH (4.5-8.0) Ur Specific [place] (1.008-1.030) Urine Protein (NEGATIVE) mg/dL Urine Glucose (UA) (NEGATIVE) mg/dL Urine Ketones (NEGATIVE) mg/dL Urine Occult Blood (NEGATIVE) Urine Nitrite (NEGATIVE) Urine Bilirubin (NEGATIVE) Urine Urobilinogen (NORMAL) mg/dL Ur Leukocyte Esterase (NEGATIVE) Urine RBC (0-5) Urine WBC (0-5) Ur Epithelial Cells Amorphous Sediment Urine Bacteria Urine Mucus Urine HCG, Qual Salicylates (2.0-20.0) mg/dL Urine Opiates Screen (NEGATIVE) Ur Oxycodone Screen (NEGATIVE) Urine Methadone Screen (NEGATIVE) Ur Propoxyphene Screen (NEGATIVE) Acetaminophen (10.0-30.0) ug/mL Ur Barbiturates Screen (NEGATIVE) Ur Tricyclics Screen (NEGATIVE) Ur Phencyclidine Scrn (NEGATIVE) Ur Amphetamine Screen (NEGATIVE) U Methamphetamines Scrn (NEGATIVE) Urine MDMA Screen (NEGATIVE) U Benzodiazepines Scrn (NEGATIVE) U Cocaine Metab Screen (NEGATIVE) U Marijuana (THC) Screen (NEGATIVE) Ethyl Alcohol mg/dL Med Orders - Current: Current Medications Acetaminophen (Tylenol) 650 mg PO Q4H PRN PRN Reason: Pain (Mild 1-3)/fever Montelukast Sodium (Singulair) 10 mg PO DAILY [facility] Non-Formulary Medication (Levalbuterol Tartrate [Xopenex Hfa]) 2 puff IH Q4H PRN PRN Reason: Wheezing Non-Formulary Medication (Norethindrone-Ethinyl Estrad [Nortrel 1-35 21 Tablet] ) 1 tab PO ASDIRECTED [facility] Non-Formulary Medication (Levalbuterol Tartrate [Levalbuterol Tartrate Hfa]) 1 puff IH ASDIRECTED [facility] Ondansetron HCl (Zofran Odt) 4 mg PO Q6H PRN PRN Reason: Nausea able to take PO Polyethylene Glycol (Miralax) 17 gm PO DAILY PRN PRN Reason: Constipation Sodium Chloride (Saline Flush) 10 ml FLUSH ASDIRECTED PRN PRN Reason: Keep Vein Open Discontinued Medications Lactated Ringer's (Ringers, Lactated) 1,000 mls @ 125 mls/hr IV ASDIRECTED [facility] Last Admin: 11/14/18 12:15 Dose: 125 mls/hr Lactated Ringer's (Ringers, Lactated) 1,000 mls @ 999 mls/hr IV BOLUS ONE Stop: 11/14/18 15:17 Last Admin: 11/14/18 14:20 Dose: 999 mls/hr Lactated Ringer's (Ringers, Lactated) 1,000 mls @ 125 mls/hr IV ASDIRECTED [facility] Last Admin: 11/15/18 06:42 Dose: 125 mls/hr Sodium Chloride (Saline Flush) 10 ml FLUSH ASDIRECTED PRN PRN Reason: Keep Vein Open Last Admin: 11/14/18 12:16 Dose: 10 ml - Exam Quality Assessment: No: Supplemental Oxygen General: Alert, Oriented, Cooperative, No Acute Distress Lungs: Normal Respiratory Effort Cardiovascular: Regular Rate, Regular Rhythm GI/Abdominal Exam: Soft, No Distention Extremities: No Pedal Edema Psy/Mental Status: Alert. No: Normal Affect (Flat affect) - Problem List Review Problem List Initiated/Reviewed/Updated: Yes - My Orders Last 24 Hours: My Active Orders 11/15/18 08:59 Convert IV to Saline Lock [OM.PC] Routine - Plan Plan:: ASSESSMENT AND PLAN INTENTIONAL DRUG OVERDOSE/SUICIDE ATTEMPT - overdose of unknown quantities of lorazepam 1 mg and Naproxin 500 mg, associated with alcohol use. Patient does report taking the ingestion with the hope that she would never wake up. I believe this represents a very serious event with 2 different intentional ingestions very close together. I believe she would best benefit from inpatient treatment in a psychiatric facility. Medically she has stable for transport and does not need additional inpatient management. -Transfer to inpatient psychiatric facility for additional management ELEVATED BILIRUBIN - bilirubin of 5.6 identified on admission, very low direct bilirubin. Repeat this morning was normal. No abdominal symptoms. -No additional workup needed MICROCYTIC RED BLOOD CELL INDICES - iron studies normal. -No additional management needed MAINTENANCE ISSUES -DVT prophylaxis;not indicated -GI prophylaxis;not indicated -Glynn catheter;not indicated -Nutrition;regular diet DISPOSITION - anticipate discharge to inpatient psychiatric facility PRIMARY CARE PROVIDER-Angelina Shi M.D.
--- NOTE | 2018-11-15 09:44 | PCM.DCSUM1 ---
Discharge Summary - Hospital Course Brief History: 23-year-old female with history of major depression, ADHD who presented with 2 separate suicide attempts via drug ingestion, the first with lorazepam and the second with naproxen. She was admitted for observation, medical clearance and additional psychiatric evaluation. Diagnosis: Stroke: No - Discharge Data Discharge Date: 11/15/18 Discharge Disposition: DC/Tfer to Psych Hosp/Unit 65 Condition: Stable - Discharge Diagnosis/Problem(s) (1) Suicide attempt by drug overdose SNOMED Code(s): 82649974, [id number] ICD Code: T50.992A - POISONING BY OTH DRUG/MEDS/BIOL SUBST, SELF-HARM, INIT Status: Acute Current Visit: Yes - Patient Summary/Data Hospital Course: Mily presented to the emergency room after her mother found her with a decreased level of consciousness. She had allegedly taken an unknown quantity of 1 mg lorazepam tablets on Thursday morning, the day before presentation. This was done while she was consuming alcohol. She was lethargic through the night but stable enough that medical attention was not summoned. The morning of admission the patient allegedly took an unknown quantity naproxen tablets. At this point an ambulance was summoned and she was brought to the emergency room. In the emergency room her vital signs were stable but she was very lethargic. She did wake up some throughout the course of the emergency room stay. Laboratory studies revealed microcytosis of her red blood cells but a normal hemoglobin as well as a bilirubin of greater than 5 with a normal indirect bilirubin. Poison control was contacted with her ingestions. They recommended hydration and observation with potential for damage to the kidney after her naproxen ingestion. She was admitted to the hospital overnight and received IV fluids. Her vital signs were stable. Kidney function has remained stable throughout the course of the hospital stay. Her bilirubin the morning after admission is down to normal. I'm not quite sure why there was one elevated level but she has no signs or symptoms of liver disease and her ultrasound was completely normal. I don't believe additional testing is needed. We did check iron studies with her microcytosis noted and these were normal so no additional treatment is needed here either. Further discussion the morning after admission reveals that the patient took the pills with the hope that she would never wake up. She admits to both chronic and more acute depression. The trigger for this episode seems to be relationship difficulties. She does seem to be remorseful for her actions at this time and is not upset that she is still alive. Given the 2 separate ingestions very close together I believe she is at a high risk for potential for self-harm. I believe she would benefit from inpatient psychiatric evaluation. We did not contact the crisis team because of the severity of the episode/ingestions and obvious need for urgent psychiatric evaluation and treatment. She has been accepted for inpatient care and will be transferred there later in the morning. - Patient Instructions Diet: Regular Diet as Tolerated Activity: As Tolerated Showering/Bathing: May Shower Notify Provider of: Increased Pain, Nausea and/or Vomiting Other/Special Instructions: 1. You were in the hospital for observation after 2 separate pill ingestions that represented suicide attempts. Your vital signs have been stable overnight. Medically you are stable and safe for transfer at this time. I do recommend inpatient psychiatric evaluation because of the serious nature of these events. I have placed you on a 72 hour hold for transfer to and evaluation at the psychiatric facility. - Discharge Plan *PRESCRIPTION DRUG MONITORING PROGRAM REVIEWED*: Not Applicable *COPY OF PRESCRIPTION DRUG MONITORING REPORT IN PATIENT JÚNIOR: Not Applicable Home Medications: Home Meds Levalbuterol Tartrate [Xopenex HFA] 2 puff IH Q4H PRN 01/20/13 [History] Amphetamine/Dextroamphetamine [Adderall XR] 25 mg PO DAILY 11/14/18 [History] Butalbital/Acetaminophen [Butalbital-Acetaminophn 50-300] 1 tab PO ASDIRECTED PRN 11/14/18 [History] LORazepam 1 mg PO ASDIRECTED PRN 11/14/18 [History] Levalbuterol Tartrate [Levalbuterol Tartrate Hfa] 1 puff IH ASDIRECTED 11/14/18 [History] Oxygen Therapy Mode: Room Air Patient Handouts: Suicidal Feelings: How to Help Yourself Referrals: Ledy Mcgregor PA [Primary Care Provider] - - Discharge Summary/Plan Comment DC Time >30 min.: Yes (45 - coordinating inpatient psych tx) - Patient Data Vitals - Most Recent: Last Vital Signs Temp 35.1 C L 11/15/18 07:00 Pulse 72 11/15/18 09:00 Resp 11/15/18 09:00 BP 123/82 11/15/18 09:00 Pulse Ox 98 11/15/18 09:00 Weight - Most Recent: 61.235 kg I&O - Last 24 hours: Intake & Output 11/14/18 11/15/18 11/15/18 22:59 06:59 14:59 Intake Total 1462 0891 340 Balance 1462 1675 340 Lab Results - Last 24 hrs: Laboratory Results - last 24 hr 11/14/18 11/14/18 11/14/18 Range/Units 12:00 12:06 12:06 WBC (4.5-11.0) K/uL RBC (3.30-5.50) M/uL Hgb (12.0-15.0) g/dL Hct (36.0-48.0) % MCV (80-98) fL MCH (27-31) pg MCHC (32-36) % Plt Count (150-400) K/uL Neut % (Auto) (36-66) % Lymph % (Auto) (24-44) % [place] % (Auto) (2-6) % Eos % (Auto) (2-4) % Baso % (Auto) (0-1) % Sodium (140-148) mmol/L Potassium (3.6-5.2) mmol/L Chloride (100-108) mmol/L Carbon Dioxide (21-32) mmol/L Anion Gap (5.0-14.0) mmol/L BUN (7-18) mg/dL Creatinine (0.6-1.0) mg/dL Est Cr Clr Drug Dosing mL/min Estimated GFR (MDRD) (>60) Glucose (74-106) mg/dL Lactic Acid (0.4-2.0) mmol/L Calcium (8.5-10.1) mg/dL Magnesium (1.8-2.4) mg/dL Iron (50-170) ug/dL TIBC (250-450) ug/dl % Saturation (20-55) % Total Bilirubin (0.2-1.0) mg/dL Direct Bilirubin (0.0-0.2) mg/dL AST (15-37) U/L ALT (12-78) U/L Alkaline Phosphatase (46-116) U/L Ammonia (11-32) mmol/L Total Protein (6.4-8.2) g/dL Albumin (3.4-5.0) g/dL Globulin (2.3-3.5) g/dL Albumin/Globulin Ratio (1.2-2.2) Lipase 180 (73-393) U/L Urine Color Yellow Urine Appearance Cloudy Urine pH 5.0 (4.5-8.0) Ur Specific [place] 1.025 (1.008-1.030) Urine Protein 30 H (NEGATIVE) mg/dL Urine Glucose (UA) Normal (NEGATIVE) mg/dL Urine Ketones Negative (NEGATIVE) mg/dL Urine Occult Blood Negative (NEGATIVE) Urine Nitrite Negative (NEGATIVE) Urine Bilirubin Moderate (NEGATIVE) Urine Urobilinogen Normal (NORMAL) mg/dL Ur Leukocyte Esterase Negative (NEGATIVE) Urine RBC 0-5 (0-5) Urine WBC 0-5 (0-5) Ur Epithelial Cells Few Amorphous Sediment Not seen Urine Bacteria Moderate Urine Mucus Moderate Urine HCG, Qual Negative Salicylates (2.0-20.0) mg/dL Urine Opiates Screen (NEGATIVE) Ur Oxycodone Screen (NEGATIVE) Urine Methadone Screen (NEGATIVE) Ur Propoxyphene Screen (NEGATIVE) Acetaminophen (10.0-30.0) ug/mL Ur Barbiturates Screen (NEGATIVE) Ur Tricyclics Screen (NEGATIVE) Ur Phencyclidine Scrn (NEGATIVE) Ur Amphetamine Screen (NEGATIVE) U Methamphetamines Scrn (NEGATIVE) Urine MDMA Screen (NEGATIVE) U Benzodiazepines Scrn (NEGATIVE) U Cocaine Metab Screen (NEGATIVE) U Marijuana (THC) Screen (NEGATIVE) Ethyl Alcohol mg/dL 11/14/18 11/14/18 11/14/18 Range/Units 12:06 12:10 12:10 WBC 9.8 (4.5-11.0) K/uL RBC 5.47 (3.30-5.50) M/uL Hgb 14.4 (12.0-15.0) g/dL Hct 43.2 (36.0-48.0) % MCV 79 L (80-98) fL MCH 26 L (27-31) pg MCHC 33 (32-36) % Plt Count 182 (150-400) K/uL Neut % (Auto) 76 H (36-66) % Lymph % (Auto) 16 L (24-44) % [place]linger % (Auto) 7 H (2-6) % Eos % (Auto) 0 L (2-4) % Baso % (Auto) 0 (0-1) % Sodium 142 (140-148) mmol/L Potassium 4.9 (3.6-5.2) mmol/L Chloride 107 (100-108) mmol/L Carbon Dioxide 26 (21-32) mmol/L Anion Gap 9.3 (5.0-14.0) mmol/L BUN 11 (7-18) mg/dL Creatinine 0.9 (0.6-1.0) mg/dL Est Cr Clr Drug Dosing 95.59 mL/min Estimated GFR (MDRD) > 60 (>60) Glucose 82 (74-106) mg/dL Lactic Acid (0.4-2.0) mmol/L Calcium 9.0 (8.5-10.1) mg/dL Magnesium 1.8 (1.8-2.4) mg/dL Iron (50-170) ug/dL TIBC (250-450) ug/dl % Saturation (20-55) % Total Bilirubin 5.6 H D (0.2-1.0) mg/dL Direct Bilirubin (0.0-0.2) mg/dL AST 55 H (15-37) U/L ALT 51 (12-78) U/L Alkaline Phosphatase 70 (46-116) U/L Ammonia (11-32) mmol/L Total Protein 7.3 (6.4-8.2) g/dL Albumin 4.5 (3.4-5.0) g/dL Globulin 2.8 (2.3-3.5) g/dL Albumin/Globulin Ratio 1.6 (1.2-2.2) Lipase (73-393) U/L Urine Color Urine Appearance Urine pH (4.5-8.0) Ur Specific [place] (1.008-1.030) Urine Protein (NEGATIVE) mg/dL Urine Glucose (UA) (NEGATIVE) mg/dL Urine Ketones (NEGATIVE) mg/dL Urine Occult Blood (NEGATIVE) Urine Nitrite (NEGATIVE) Urine Bilirubin (NEGATIVE) Urine Urobilinogen (NORMAL) mg/dL Ur Leukocyte Esterase (NEGATIVE) Urine RBC (0-5) Urine WBC (0-5) Ur Epithelial Cells Amorphous Sediment Urine Bacteria Urine Mucus Urine HCG, Qual Salicylates (2.0-20.0) mg/dL Urine Opiates Screen Negative (NEGATIVE) Ur Oxycodone Screen Negative (NEGATIVE) Urine Methadone Screen Negative (NEGATIVE) Ur Propoxyphene Screen Negative (NEGATIVE) Acetaminophen (10.0-30.0) ug/mL Ur Barbiturates Screen Presumptive positive H (NEGATIVE) Ur Tricyclics Screen Presumptive positive H (NEGATIVE) Ur Phencyclidine Scrn Negative (NEGATIVE) Ur Amphetamine Screen Negative (NEGATIVE) U Methamphetamines Scrn Negative (NEGATIVE) Urine MDMA Screen Negative (NEGATIVE) U Benzodiazepines Scrn Presumptive positive H (NEGATIVE) U Cocaine Metab Screen Negative (NEGATIVE) U Marijuana (THC) Screen Presumptive positive H (NEGATIVE) Ethyl Alcohol mg/dL 11/14/18 11/14/18 11/14/18 Range/Units 12:10 12:10 12:10 WBC (4.5-11.0) K/uL RBC (3.30-5.50) M/uL Hgb (12.0-15.0) g/dL Hct (36.0-48.0) % MCV (80-98) fL MCH (27-31) pg MCHC (32-36) % Plt Count (150-400) K/uL Neut % (Auto) (36-66) % Lymph % (Auto) (24-44) % [place] % (Auto) (2-6) % Eos % (Auto) (2-4) % Baso % (Auto) (0-1) % Sodium (140-148) mmol/L Potassium (3.6-5.2) mmol/L Chloride (100-108) mmol/L Carbon Dioxide (21-32) mmol/L Anion Gap (5.0-14.0) mmol/L BUN (7-18) mg/dL Creatinine (0.6-1.0) mg/dL Est Cr Clr Drug Dosing mL/min Estimated GFR (MDRD) (>60) Glucose (74-106) mg/dL Lactic Acid (0.4-2.0) mmol/L Calcium (8.5-10.1) mg/dL Magnesium (1.8-2.4) mg/dL Iron (50-170) ug/dL TIBC (250-450) ug/dl % Saturation (20-55) % Total Bilirubin (0.2-1.0) mg/dL Direct Bilirubin (0.0-0.2) mg/dL AST (15-37) U/L ALT (12-78) U/L Alkaline Phosphatase (46-116) U/L Ammonia 28 (11-32) mmol/L Total Protein (6.4-8.2) g/dL Albumin (3.4-5.0) g/dL Globulin (2.3-3.5) g/dL Albumin/Globulin Ratio (1.2-2.2) Lipase (73-393) U/L Urine Color Urine Appearance Urine pH (4.5-8.0) Ur Specific [place] (1.008-1.030) Urine Protein (NEGATIVE) mg/dL Urine Glucose (UA) (NEGATIVE) mg/dL Urine Ketones (NEGATIVE) mg/dL Urine Occult Blood (NEGATIVE) Urine Nitrite (NEGATIVE) Urine Bilirubin (NEGATIVE) Urine Urobilinogen (NORMAL) mg/dL Ur Leukocyte Esterase (NEGATIVE) Urine RBC (0-5) Urine WBC (0-5) Ur Epithelial Cells Amorphous Sediment Urine Bacteria Urine Mucus Urine HCG, Qual Salicylates (2.0-20.0) mg/dL Urine Opiates Screen (NEGATIVE) Ur Oxycodone Screen (NEGATIVE) Urine Methadone Screen (NEGATIVE) Ur Propoxyphene Screen (NEGATIVE) Acetaminophen 2.0 L (10.0-30.0) ug/mL Ur Barbiturates Screen (NEGATIVE) Ur Tricyclics Screen (NEGATIVE) Ur Phencyclidine Scrn (NEGATIVE) Ur Amphetamine Screen (NEGATIVE) U Methamphetamines Scrn (NEGATIVE) Urine MDMA Screen (NEGATIVE) U Benzodiazepines Scrn (NEGATIVE) U Cocaine Metab Screen (NEGATIVE) U Marijuana (THC) Screen (NEGATIVE) Ethyl Alcohol < 3 mg/dL 11/14/18 11/14/18 11/14/18 Range/Units 12:10 12:46 12:48 WBC (4.5-11.0) K/uL RBC (3.30-5.50) M/uL Hgb (12.0-15.0) g/dL Hct (36.0-48.0) % MCV (80-98) fL MCH (27-31) pg MCHC (32-36) % Plt Count (150-400) K/uL Neut % (Auto) (36-66) % Lymph % (Auto) (24-44) % [place] % (Auto) (2-6) % Eos % (Auto) (2-4) % Baso % (Auto) (0-1) % Sodium (140-148) mmol/L Potassium (3.6-5.2) mmol/L Chloride (100-108) mmol/L Carbon Dioxide (21-32) mmol/L Anion Gap (5.0-14.0) mmol/L BUN (7-18) mg/dL Creatinine (0.6-1.0) mg/dL Est Cr Clr Drug Dosing mL/min Estimated GFR (MDRD) (>60) Glucose (74-106) mg/dL Lactic Acid 1.5 (0.4-2.0) mmol/L Calcium (8.5-10.1) mg/dL Magnesium (1.8-2.4) mg/dL Iron (50-170) ug/dL TIBC (250-450) ug/dl % Saturation (20-55) % Total Bilirubin (0.2-1.0) mg/dL Direct Bilirubin 0.06 (0.0-0.2) mg/dL AST (15-37) U/L ALT (12-78) U/L Alkaline Phosphatase (46-116) U/L Ammonia (11-32) mmol/L Total Protein (6.4-8.2) g/dL Albumin (3.4-5.0) g/dL Globulin (2.3-3.5) g/dL Albumin/Globulin Ratio (1.2-2.2) Lipase (73-393) U/L Urine Color Urine Appearance Urine pH (4.5-8.0) Ur Specific [place] (1.008-1.030) Urine Protein (NEGATIVE) mg/dL Urine Glucose (UA) (NEGATIVE) mg/dL Urine Ketones (NEGATIVE) mg/dL Urine Occult Blood (NEGATIVE) Urine Nitrite (NEGATIVE) Urine Bilirubin (NEGATIVE) Urine Urobilinogen (NORMAL) mg/dL Ur Leukocyte Esterase (NEGATIVE) Urine RBC (0-5) Urine WBC (0-5) Ur Epithelial Cells Amorphous Sediment Urine Bacteria Urine Mucus Urine HCG, Qual Salicylates 2.6 (2.0-20.0) mg/dL Urine Opiates Screen (NEGATIVE) Ur Oxycodone Screen (NEGATIVE) Urine Methadone Screen (NEGATIVE) Ur Propoxyphene Screen (NEGATIVE) Acetaminophen (10.0-30.0) ug/mL Ur Barbiturates Screen (NEGATIVE) Ur Tricyclics Screen (NEGATIVE) Ur Phencyclidine Scrn (NEGATIVE) Ur Amphetamine Screen (NEGATIVE) U Methamphetamines Scrn (NEGATIVE) Urine MDMA Screen (NEGATIVE) U Benzodiazepines Scrn (NEGATIVE) U Cocaine Metab Screen (NEGATIVE) U Marijuana (THC) Screen (NEGATIVE) Ethyl Alcohol mg/dL 11/14/18 11/14/18 11/15/18 Range/Units 15:43 20:00 06:05 WBC (4.5-11.0) K/uL RBC (3.30-5.50) M/uL Hgb (12.0-15.0) g/dL Hct (36.0-48.0) % MCV (80-98) fL MCH (27-31) pg MCHC (32-36) % Plt Count (150-400) K/uL Neut % (Auto) (36-66) % Lymph % (Auto) (24-44) % [place] % (Auto) (2-6) % Eos % (Auto) (2-4) % Baso % (Auto) (0-1) % Sodium 141 145 (140-148) mmol/L Potassium 3.4 L 4.0 (3.6-5.2) mmol/L Chloride 108 110 H (100-108) mmol/L Carbon Dioxide 25 24 (21-32) mmol/L Anion Gap 11.4 15.0 H (5.0-14.0) mmol/L BUN 11 7 (7-18) mg/dL Creatinine 1.1 H 0.9 (0.6-1.0) mg/dL Est Cr Clr Drug Dosing 78.21 95.59 mL/min Estimated GFR (MDRD) > 60 > 60 (>60) Glucose 133 H 80 (74-106) mg/dL Lactic Acid (0.4-2.0) mmol/L Calcium 8.5 8.2 L (8.5-10.1) mg/dL Magnesium (1.8-2.4) mg/dL Iron (50-170) ug/dL TIBC (250-450) ug/dl % Saturation (20-55) % Total Bilirubin 0.4 D (0.2-1.0) mg/dL Direct Bilirubin (0.0-0.2) mg/dL AST 24 (15-37) U/L ALT 36 (12-78) U/L Alkaline Phosphatase 54 (46-116) U/L Ammonia (11-32) mmol/L Total Protein 5.0 L (6.4-8.2) g/dL Albumin 2.8 L (3.4-5.0) g/dL Globulin 2.2 L (2.3-3.5) g/dL Albumin/Globulin Ratio 1.3 (1.2-2.2) Lipase (73-393) U/L Urine Color Urine Appearance Urine pH (4.5-8.0) Ur Specific [place] (1.008-1.030) Urine Protein (NEGATIVE) mg/dL Urine Glucose (UA) (NEGATIVE) mg/dL Urine Ketones (NEGATIVE) mg/dL Urine Occult Blood (NEGATIVE) Urine Nitrite (NEGATIVE) Urine Bilirubin (NEGATIVE) Urine Urobilinogen (NORMAL) mg/dL Ur Leukocyte Esterase (NEGATIVE) Urine RBC (0-5) Urine WBC (0-5) Ur Epithelial Cells Amorphous Sediment Urine Bacteria Urine Mucus Urine HCG, Qual Salicylates (2.0-20.0) mg/dL Urine Opiates Screen (NEGATIVE) Ur Oxycodone Screen (NEGATIVE) Urine Methadone Screen (NEGATIVE) Ur Propoxyphene Screen (NEGATIVE) Acetaminophen 3.5 L 4.7 L (10.0-30.0) ug/mL Ur Barbiturates Screen (NEGATIVE) Ur Tricyclics Screen (NEGATIVE) Ur Phencyclidine Scrn (NEGATIVE) Ur Amphetamine Screen (NEGATIVE) U Methamphetamines Scrn (NEGATIVE) Urine MDMA Screen (NEGATIVE) U Benzodiazepines Scrn (NEGATIVE) U Cocaine Metab Screen (NEGATIVE) U Marijuana (THC) Screen (NEGATIVE) Ethyl Alcohol mg/dL 11/15/18 Range/Units 06:05 WBC (4.5-11.0) K/uL RBC (3.30-5.50) M/uL Hgb (12.0-15.0) g/dL Hct (36.0-48.0) % MCV (80-98) fL MCH (27-31) pg MCHC (32-36) % Plt Count (150-400) K/uL Neut % (Auto) (36-66) % Lymph % (Auto) (24-44) % [place] % (Auto) (2-6) % Eos % (Auto) (2-4) % Baso % (Auto) (0-1) % Sodium (140-148) mmol/L Potassium (3.6-5.2) mmol/L Chloride (100-108) mmol/L Carbon Dioxide (21-32) mmol/L Anion Gap (5.0-14.0) mmol/L BUN (7-18) mg/dL Creatinine (0.6-1.0) mg/dL Est Cr Clr Drug Dosing mL/min Estimated GFR (MDRD) (>60) Glucose (74-106) mg/dL Lactic Acid (0.4-2.0) mmol/L Calcium (8.5-10.1) mg/dL Magnesium (1.8-2.4) mg/dL Iron 126 (50-170) ug/dL TIBC 267 (250-450) ug/dl % Saturation 47 (20-55) % Total Bilirubin (0.2-1.0) mg/dL Direct Bilirubin (0.0-0.2) mg/dL AST (15-37) U/L ALT (12-78) U/L Alkaline Phosphatase (46-116) U/L Ammonia (11-32) mmol/L Total Protein (6.4-8.2) g/dL Albumin (3.4-5.0) g/dL Globulin (2.3-3.5) g/dL Albumin/Globulin Ratio (1.2-2.2) Lipase (73-393) U/L Urine Color Urine Appearance Urine pH (4.5-8.0) Ur Specific [place] (1.008-1.030) Urine Protein (NEGATIVE) mg/dL Urine Glucose (UA) (NEGATIVE) mg/dL Urine Ketones (NEGATIVE) mg/dL Urine Occult Blood (NEGATIVE) Urine Nitrite (NEGATIVE) Urine Bilirubin (NEGATIVE) Urine Urobilinogen (NORMAL) mg/dL Ur Leukocyte Esterase (NEGATIVE) Urine RBC (0-5) Urine WBC (0-5) Ur Epithelial Cells Amorphous Sediment Urine Bacteria Urine Mucus Urine HCG, Qual Salicylates (2.0-20.0) mg/dL Urine Opiates Screen (NEGATIVE) Ur Oxycodone Screen (NEGATIVE) Urine Methadone Screen (NEGATIVE) Ur Propoxyphene Screen (NEGATIVE) Acetaminophen (10.0-30.0) ug/mL Ur Barbiturates Screen (NEGATIVE) Ur Tricyclics Screen (NEGATIVE) Ur Phencyclidine Scrn (NEGATIVE) Ur Amphetamine Screen (NEGATIVE) U Methamphetamines Scrn (NEGATIVE) Urine MDMA Screen (NEGATIVE) U Benzodiazepines Scrn (NEGATIVE) U Cocaine Metab Screen (NEGATIVE) U Marijuana (THC) Screen (NEGATIVE) Ethyl Alcohol mg/dL Med Orders - Current: Current Medications Acetaminophen (Tylenol) 650 mg PO Q4H PRN PRN Reason: Pain (Mild 1-3)/fever Montelukast Sodium (Singulair) 10 mg PO DAILY [facility] Last Admin: 11/15/18 09:20 Dose: Not Given Non-Formulary Medication (Levalbuterol Tartrate [Xopenex Hfa]) 2 puff IH Q4H PRN PRN Reason: Wheezing Non-Formulary Medication (Norethindrone-Ethinyl Estrad [Nortrel 1-35 21 Tablet] ) 1 tab PO ASDIRECTED [facility] Non-Formulary Medication (Levalbuterol Tartrate [Levalbuterol Tartrate Hfa]) 1 puff IH ASDIRECTED [facility] Ondansetron HCl (Zofran Odt) 4 mg PO Q6H PRN PRN Reason: Nausea able to take PO Polyethylene Glycol (Miralax) 17 gm PO DAILY PRN PRN Reason: Constipation Sodium Chloride (Saline Flush) 10 ml FLUSH ASDIRECTED PRN PRN Reason: Keep Vein Open Discontinued Medications Lactated Ringer's (Ringers, Lactated) 1,000 mls @ 125 mls/hr IV ASDIRECTED [facility] Last Admin: 11/14/18 12:15 Dose: 125 mls/hr Lactated Ringer's (Ringers, Lactated) 1,000 mls @ 999 mls/hr IV BOLUS ONE Stop: 11/14/18 15:17 Last Admin: 11/14/18 14:20 Dose: 999 mls/hr Lactated Ringer's (Ringers, Lactated) 1,000 mls @ 125 mls/hr IV ASDIRECTED [facility] Last Admin: 11/15/18 06:42 Dose: 125 mls/hr Sodium Chloride (Saline Flush) 10 ml FLUSH ASDIRECTED PRN PRN Reason: Keep Vein Open Last Admin: 11/14/18 12:16 Dose: 10 ml - Exam Quality Assessment: Denies: Supplemental Oxygen General: Reports: Alert, Oriented, Cooperative, No Acute Distress Lungs: Reports: Normal Respiratory Effort GI/Abdominal Exam: Soft, No Distention Extremities: No Pedal Edema Psy/Mental Status: Reports: Alert. Denies: Normal Affect (flat) *Q Meaningful Use (DIS) - VTE *Q VTE Pharmacological Contraindications *Q: Not Candidate LT Anticoag
[2018-11-15 11:05] VITALS: BP 131/99; PULSE 73
== END 2018-11-15 12:15 | DRG 918 ==
LOC: JP.ED 10:04 → JP.ICU 14:31
PROVIDERS: ADMIT Hospitalist; ATTEND Internal Medicine
DX: T42.4X2A Poisoning by benzodiazepines, intentional self-harm, initial encounter (principal); T39.312A Poisoning by propionic acid derivatives, intentional self-harm, initial encounter; Y92.009 Unspecified place in unspecified non-institutional (private) residence as the place of occurrence of the external cause; R40.2412 Glasgow coma scale score 13-15, at arrival to emergency department; F12.90 Cannabis use, unspecified, uncomplicated; F13.90 Sedative, hypnotic, or anxiolytic use, unspecified, uncomplicated; F19.90 Other psychoactive substance use, unspecified, uncomplicated; Z72.89 Other problems related to lifestyle; F17.210 Nicotine dependence, cigarettes, uncomplicated; R71.8 Other abnormality of red blood cells; J45.909 Unspecified asthma, uncomplicated; H54.7 Unspecified visual loss; N80.9 Endometriosis, unspecified; G43.909 Migraine, unspecified, not intractable, without status migrainosus; N93.8 Other specified abnormal uterine and vaginal bleeding; E80.7 Disorder of bilirubin metabolism, unspecified; F41.9 Anxiety disorder, unspecified; F34.1 Dysthymic disorder; F90.9 Attention-deficit hyperactivity disorder, unspecified type; L30.9 Dermatitis, unspecified; Z90.49 Acquired absence of other specified parts of digestive tract; Z88.0 Allergy status to penicillin; Z88.2 Allergy status to sulfonamides; Z88.8 Allergy status to other drugs, medicaments and biological substances; K59.00 Constipation, unspecified; R82.5 Elevated urine levels of drugs, medicaments and biological substances
CPT/HCPCS: 36415; 76705; 80048; 80053; 80305-QW; 81001; 81025; 82140; 82248; 83550; 83605; 83690; 83735; 85025; 93005; 96360; 96361; 99285-25; G0480; J7120